=== PATIENT | female | born 1950 | race Caucasian/White ===

== ENCOUNTER → 2017-10-14 | Outpatient (REF) | payer MEDICARE ==
[2017-10-14 15:06] LABS: ALBUMIN 3.6 GM/DL (3.2-5.2); ALBUMIN/GLOBULIN RATIO 0.84 (1.00-1.93); ALKALINE PHOSPHATASE 69 U/L (45-117); ALT/SGPT 30 U/L (12-78); ANION GAP 7 MEQ/L (8-16); AST/SGOT 24 U/L (7-37); BILIRUBIN,TOTAL 0.5 MG/DL (0.2-1.0); BLOOD UREA NITROGEN 17 MG/DL (7-18); CALCIUM LEVEL 8.9 MG/DL (8.8-10.2); CARBON DIOXIDE LEVEL 27 MEQ/L (21-32); CHLORIDE LEVEL 105 MEQ/L (98-107); CHOLESTEROL LEVEL 202 MG/DL (<200); CHOLESTEROL RISK RATIO 5.179 (<5); CREATININE FOR GFR 1.27 MG/DL (0.55-1.30); GLOMERULAR FILTRATION RATE 44.8 (>45); GLUCOSE, FASTING 154 MG/DL (70-100); HDL CHOLESTEROL 39 MG/DL (>40); LDL CHOLESTEROL 102.6 MG/DL (<100); NON-HDL-C 163 MG/DL; SODIUM LEVEL 139 MEQ/L (136-145); THYROID STIMULATING HORMONE 0.133 uIU/ML (0.358-3.740); TOTAL PROTEIN 7.9 GM/DL (6.4-8.2); TRIGLYCERIDES LEVEL 302 MG/DL (<150)
[2017-10-14 17:18] LABS: ESTIMATED AVERAGE GLUCOSE 177 MG/DL (60-110); HEMOGLOBIN A1c 7.8 %
== END ==
LOC: M SFHCPLAZ 11:27
DX: E11.9 Type 2 diabetes mellitus without complications (principal); E78.2 Mixed hyperlipidemia; E89.0 Postprocedural hypothyroidism
CPT/HCPCS: 84443

== ENCOUNTER → 2017-11-22 | Outpatient (CLI) | payer MEDICARE | LOC: M LRY 12:17 | DX: M16.11 Unilateral primary osteoarthritis, right hip (principal); M51.37 Other intervertebral disc degeneration, lumbosacral region; M25.78 Osteophyte, vertebrae; M25.551 Pain in right hip; M79.604 Pain in right leg | CPT/HCPCS: 72110; G0463 ==

== ENCOUNTER 2017-12-20 12:17 | Emergency (ER) | payer MEDICARE ==
[2017-12-20 11:50] LABS: KETONE, URINE AUTO RFX NEGATIVE (NEGATIVE); LEUKOCYTE ESTERASE UR AUTO RFX NEGATIVE (NEGATIVE); MUCUS, URINE RFX SMALL (NEGATIVE); NITRITE, URINE AUTO RFX NEGATIVE (NEGATIVE); RBC, URINE AUTO RFX 42 /HPF (0-3); SPECIFIC GRAVITY UR AUTO RFX 1.014 (1.002-1.035); SQUAM EPITHELIAL CELL UR AURFX 0 /HPF (0-6); WBC, URINE AUTO RFX 0 /HPF (0-3)
[2017-12-20 12:22] LABS: BASO % 0.1 % (0.0-1.0); EOS % 0.1 % (0.0-3.0); HEMATOCRIT 42.3 % (36.0-47.0); HEMOGLOBIN 14.3 g/dl (12.0-15.5); IMMATURE GRANULOCYTE % 0.5 % (0-3.0); LYMPH # 0.8 10^3/uL (1.5-4.5); LYMPH % 9.6 % (24.0-44.0); MEAN CORPUSCULAR HEMOGLOBIN 28.4 pg (27.0-33.0); MEAN CORPUSCULAR HGB CONC 33.8 g/dl (32.0-36.5); MEAN CORPUSCULAR VOLUME 83.9 fl (80.0-96.0); MONO # 0.2 10^3/uL (0.0-0.8); MONO % 2.1 % (0.0-5.0); NEUTROPHILS % 87.6 % (36.0-66.0); PLATELET COUNT, AUTOMATED 170 10^3/uL (150-450); RED BLOOD COUNT 5.04 10^6/uL (4.00-5.40); RED CELL DISTRIBUTION WIDTH 13.2 % (11.5-14.5)
[2017-12-20 12:52] LABS: ANION GAP 8 MEQ/L (8-16); BLOOD UREA NITROGEN 16 MG/DL (7-18); CARBON DIOXIDE LEVEL 28 MEQ/L (21-32); CHLORIDE LEVEL 104 MEQ/L (98-107); CREATININE FOR GFR 1.31 MG/DL (0.55-1.30); GLOMERULAR FILTRATION RATE 43.2 (>45); GLUCOSE, FASTING 225 MG/DL (70-100); POTASSIUM SERUM 4.2 MEQ/L (3.5-5.1); SODIUM LEVEL 140 MEQ/L (136-145)
[2017-12-20 12:53] LABS: ALBUMIN 3.3 GM/DL (3.2-5.2); ALBUMIN/GLOBULIN RATIO 0.67 (1.00-1.93); ALKALINE PHOSPHATASE 72 U/L (45-117); ALT/SGPT 31 U/L (12-78); AST/SGOT 19 U/L (7-37); BILIRUBIN,DIRECT 0.2 MG/DL (0.0-0.2); BILIRUBIN,TOTAL 0.7 MG/DL (0.2-1.0); CALCIUM LEVEL 8.7 MG/DL (8.8-10.2); LIPASE 123 U/L (73-393); TOTAL PROTEIN 8.2 GM/DL (6.4-8.2)
== END 2017-12-20 13:55 | disposition home or self-care (01) ==
LOC: M ED 12:17
DX: N20.1 Calculus of ureter (principal); N13.30 Unspecified hydronephrosis; E11.9 Type 2 diabetes mellitus without complications; I10 Essential (primary) hypertension; E78.00 Pure hypercholesterolemia, unspecified; E03.9 Hypothyroidism, unspecified; K80.20 Calculus of gallbladder without cholecystitis without obstruction; K76.0 Fatty (change of) liver, not elsewhere classified; K44.9 Diaphragmatic hernia without obstruction or gangrene; D25.9 Leiomyoma of uterus, unspecified; Z79.899 Other long term (current) drug therapy
CPT/HCPCS: 74176

== ENCOUNTER 2017-12-21 15:52 | Observation (INO) | payer MEDICARE ==
[2017-12-21] MEDS: METOCLOPRAMIDE INJ 10MG/2ML VIAL (J2765) IV (15:59)
[2017-12-21] MEDS: KETOROLAC 30 MG/ML VIAL (J1885) IV (16:00)
[2017-12-21] MEDS: NS 1,000 ML IV ×3 (16:01→23:41)
[2017-12-21 16:13] LABS: BASO % 0.2 % (0.0-1.0); EOS % 0.2 % (0.0-3.0); HEMATOCRIT 42.5 % (36.0-47.0); HEMOGLOBIN 14.6 g/dl (12.0-15.5); IMMATURE GRANULOCYTE % 0.3 % (0-3.0); LYMPH # 1.7 10^3/uL (1.5-4.5); MEAN CORPUSCULAR HEMOGLOBIN 28.8 pg (27.0-33.0); MEAN CORPUSCULAR HGB CONC 34.4 g/dl (32.0-36.5); MEAN CORPUSCULAR VOLUME 83.8 fl (80.0-96.0); MONO # 0.7 10^3/uL (0.0-0.8); NEUTROPHILS # 7.9 10^3/uL (1.8-7.7); NEUTROPHILS % 76.3 % (36.0-66.0); PLATELET COUNT, AUTOMATED 196 10^3/uL (150-450); RED BLOOD COUNT 5.07 10^6/uL (4.00-5.40); RED CELL DISTRIBUTION WIDTH 13.3 % (11.5-14.5); WHITE BLOOD COUNT 10.3 10^3/uL (4.0-10.0)
[2017-12-21 16:36] LABS: ALBUMIN 3.5 GM/DL (3.2-5.2); ALBUMIN/GLOBULIN RATIO 0.83 (1.00-1.93); ALKALINE PHOSPHATASE 75 U/L (45-117); ALT/SGPT 29 U/L (12-78); ANION GAP 10 MEQ/L (8-16); AST/SGOT 16 U/L (7-37); BILIRUBIN,DIRECT 0.3 MG/DL (0.0-0.2); BILIRUBIN,TOTAL 1.1 MG/DL (0.2-1.0); BLOOD UREA NITROGEN 21 MG/DL (7-18); CALCIUM LEVEL 8.5 MG/DL (8.8-10.2); CARBON DIOXIDE LEVEL 27 MEQ/L (21-32); CHLORIDE LEVEL 102 MEQ/L (98-107); CREATININE FOR GFR 1.84 MG/DL (0.55-1.30); GLOMERULAR FILTRATION RATE 29.2 (>45); GLUCOSE, FASTING 200 MG/DL (70-100); LIPASE 135 U/L (73-393); SODIUM LEVEL 139 MEQ/L (136-145); TOTAL PROTEIN 7.7 GM/DL (6.4-8.2)
[2017-12-21 19:47] LABS: CALCIUM OXALATE CRYSTALS RFX SMALL; KETONE, URINE AUTO RFX TRACE mg/dL (NEGATIVE); LEUKOCYTE ESTERASE UR AUTO RFX NEGATIVE (NEGATIVE); MUCUS, URINE RFX LARGE (NEGATIVE); NITRITE, URINE AUTO RFX NEGATIVE (NEGATIVE); RBC, URINE AUTO RFX 90 /HPF (0-3); SPECIFIC GRAVITY UR AUTO RFX 1.024 (1.002-1.035); SQUAM EPITHELIAL CELL UR AURFX 1 /HPF (0-6); WBC, URINE AUTO RFX 9 /HPF (0-3)
[2017-12-21] MEDS ORDERED: PERCOCET 5MG/325MG TAB PO (21:15)
[2017-12-21] MEDS ORDERED: MORPHINE 4 MG/ML 1ML VIAL/SYRINGE (J2270) IV (21:15)
[2017-12-21] MEDS ORDERED: GLUCAGON FOR INJ 1 MG VIAL (J1610) SC (21:15)
[2017-12-21] MEDS ORDERED: ONDANSETRON 4MG/2ML VIAL (J2405) IV (21:15)
[2017-12-21] MEDS ORDERED: GLUCOSE 4 GM CHEW TABLET PO (21:15)
[2017-12-21] MEDS ORDERED: DEXTROSE 50% 50 ML SYRINGE IV (21:15)
[2017-12-21] MEDS ORDERED: ACETAMINOPHEN TAB 650MG DOSE (2X325MG) PO (21:15)
[2017-12-21 21:36] LABS: ESTIMATED AVERAGE GLUCOSE 154 MG/DL (60-110)
[2017-12-21] MEDS: cefTRIAXone SOD 1 GM in D5W MINI-BAG PLUS 50 ML IV (23:41)
[2017-12-21] MEDS: TAMSULOSIN 0.4 MG CAP PO (23:41)
[2017-12-21 23:50] LABS: BEDSIDE GLUCOSE 134 MG/DL (80-115)
[2017-12-22 06:08] LABS: BEDSIDE GLUCOSE 120 MG/DL (80-115)
[2017-12-22] MEDS: NS 1,000 ML IV ×3 (06:16→23:49)
[2017-12-22] MEDS: LEVOTHYROXINE 75MCG TABLET (0.075MG) PO (06:16)
[2017-12-22] MEDS: PERCOCET 5MG/325MG TAB PO (06:17)
[2017-12-22] MEDS: HumaLOG INSULIN (NovoLOG) PER UNIT SC ×5 (06:18→21:19)
[2017-12-22 07:26] LABS: BASO % 0.2 % (0.0-1.0); EOS # 0.1 10^3/uL (0.0-0.50); EOS % 1.7 % (0.0-3.0); HEMATOCRIT 33.5 % (36.0-47.0); IMMATURE GRANULOCYTE % 0.3 % (0-3.0); LYMPH # 1.4 10^3/uL (1.5-4.5); LYMPH % 21.4 % (24.0-44.0); MEAN CORPUSCULAR HEMOGLOBIN 28.9 pg (27.0-33.0); MEAN CORPUSCULAR HGB CONC 34.6 g/dl (32.0-36.5); MEAN CORPUSCULAR VOLUME 83.3 fl (80.0-96.0); MONO # 0.5 10^3/uL (0.0-0.8); MONO % 8.1 % (0.0-5.0); NEUTROPHILS # 4.3 10^3/uL (1.8-7.7); NEUTROPHILS % 68.3 % (36.0-66.0); PLATELET COUNT, AUTOMATED 130 10^3/uL (150-450); RED BLOOD COUNT 4.02 10^6/uL (4.00-5.40); RED CELL DISTRIBUTION WIDTH 13.4 % (11.5-14.5); WHITE BLOOD COUNT 6.3 10^3/uL (4.0-10.0)
[2017-12-22 07:36] LABS: HEMOGLOBIN 11.6 g/dl (12.0-15.5)
[2017-12-22 07:49] LABS: ANION GAP 8 MEQ/L (8-16); BLOOD UREA NITROGEN 23 MG/DL (7-18); CALCIUM LEVEL 7.5 MG/DL (8.8-10.2); CARBON DIOXIDE LEVEL 25 MEQ/L (21-32); CHLORIDE LEVEL 110 MEQ/L (98-107); CREATININE FOR GFR 1.98 MG/DL (0.55-1.30); GLOMERULAR FILTRATION RATE 26.8 (>45); GLUCOSE, FASTING 104 MG/DL (70-100); POTASSIUM SERUM 3.5 MEQ/L (3.5-5.1); SODIUM LEVEL 143 MEQ/L (136-145)
[2017-12-22 11:37] LABS: BEDSIDE GLUCOSE 97 MG/DL (80-115)
[2017-12-22] MEDS ORDERED: fentaNYL 100 MCG/2 ML INJECTION (J3010) As Ordered (16:05)
[2017-12-22] MEDS ORDERED: MIDAZOLAM INJ 2 MG/2 ML VIAL (J2250) As Ordered (16:05)
[2017-12-22] MEDS: CONRAY-60 60% 50ML VIAL (Q9961) As Ordered (16:28)
[2017-12-22 17:50] LABS: BEDSIDE GLUCOSE 99 MG/DL (80-115)
[2017-12-22] MEDS ORDERED: METOCLOPRAMIDE INJ 10MG/2ML VIAL (J2765) IV (18:45)
[2017-12-22] MEDS: LR 1,000 ML IV (18:45)
[2017-12-22] MEDS ORDERED: fentaNYL 100 MCG/2 ML INJECTION (J3010) IV (18:45)
[2017-12-22] MEDS ORDERED: ONDANSETRON 4MG/2ML VIAL (J2405) IV (18:45)
[2017-12-22] MEDS ORDERED: PERCOCET 5MG/325MG TAB PO (18:45)
[2017-12-22 21:07] LABS: BEDSIDE GLUCOSE 147 MG/DL (80-115)
[2017-12-22] MEDS: TAMSULOSIN 0.4 MG CAP PO (21:41)
[2017-12-22] MEDS: PRAVASTATIN 20 MG TAB PO (21:41)
[2017-12-22] MEDS: LISINOPRIL 20 MG TAB PO (21:44)
[2017-12-23] MEDS: cefTRIAXone SOD 1 GM in D5W MINI-BAG PLUS 50 ML IV (00:26)
[2017-12-23] MEDS: NS 1,000 ML IV ×2 (01:53→06:29)
[2017-12-23] MEDS: LEVOTHYROXINE 75MCG TABLET (0.075MG) PO (06:10)
[2017-12-23 06:49] LABS: BASO % 0.4 % (0.0-1.0); EOS # 0.2 10^3/uL (0.0-0.50); EOS % 3.6 % (0.0-3.0); HEMOGLOBIN 11.2 g/dl (12.0-15.5); IMMATURE GRANULOCYTE % 0.2 % (0-3.0); LYMPH # 1.5 10^3/uL (1.5-4.5); LYMPH % 30.7 % (24.0-44.0); MEAN CORPUSCULAR HEMOGLOBIN 28.9 pg (27.0-33.0); MEAN CORPUSCULAR HGB CONC 33.9 g/dl (32.0-36.5); MEAN CORPUSCULAR VOLUME 85.3 fl (80.0-96.0); MONO # 0.3 10^3/uL (0.0-0.8); MONO % 6.8 % (0.0-5.0); NEUTROPHILS # 2.8 10^3/uL (1.8-7.7); NEUTROPHILS % 58.3 % (36.0-66.0); PLATELET COUNT, AUTOMATED 133 10^3/uL (150-450); RED BLOOD COUNT 3.87 10^6/uL (4.00-5.40); RED CELL DISTRIBUTION WIDTH 13.4 % (11.5-14.5); WHITE BLOOD COUNT 4.7 10^3/uL (4.0-10.0)
[2017-12-23 07:16] LABS: ANION GAP 9 MEQ/L (8-16); BLOOD UREA NITROGEN 18 MG/DL (7-18); CALCIUM LEVEL 7.6 MG/DL (8.8-10.2); CARBON DIOXIDE LEVEL 24 MEQ/L (21-32); CHLORIDE LEVEL 111 MEQ/L (98-107); CREATININE FOR GFR 1.19 MG/DL (0.55-1.30); GLOMERULAR FILTRATION RATE 48.3 (>45); GLUCOSE, FASTING 97 MG/DL (70-100); POTASSIUM SERUM 3.6 MEQ/L (3.5-5.1); SODIUM LEVEL 144 MEQ/L (136-145)
[2017-12-23] MEDS: HumaLOG INSULIN (NovoLOG) PER UNIT SC (07:30)
== END 2017-12-23 11:10 | disposition home or self-care (01) ==
LOC: M ED 15:52 → M ED INP 21:09 → M PED 23:25
DX: N13.2 Hydronephrosis with renal and ureteral calculous obstruction (principal); N17.9 Acute kidney failure, unspecified; D72.829 Elevated white blood cell count, unspecified; R50.9 Fever, unspecified; E11.65 Type 2 diabetes mellitus with hyperglycemia; I12.9 Hypertensive chronic kidney disease with stage 1 through stage 4 chronic kidney disease, or unspecified chronic kidney disease; N18.3 Chronic kidney disease, stage 3 (moderate); E11.29 Type 2 diabetes mellitus with other diabetic kidney complication; E03.9 Hypothyroidism, unspecified; E78.5 Hyperlipidemia, unspecified; K44.9 Diaphragmatic hernia without obstruction or gangrene; K76.0 Fatty (change of) liver, not elsewhere classified; K80.20 Calculus of gallbladder without cholecystitis without obstruction; Z79.899 Other long term (current) drug therapy; Z79.84 Long term (current) use of oral hypoglycemic drugs
CPT/HCPCS: 52332

== ENCOUNTER → 2017-12-29 | Outpatient (CLI) | payer MEDICARE | LOC: M SMT 09:36 | DX: K80.20 Calculus of gallbladder without cholecystitis without obstruction (principal); N20.0 Calculus of kidney; Z96.0 Presence of urogenital implants | CPT/HCPCS: 74018; G0463 ==

== ENCOUNTER 2018-01-04 16:09 | Emergency (ER) | payer MEDICARE ==
[2018-01-04] MEDS: LIDOCAINE 1% MDV 20ML VIAL IM (17:26)
== END 2018-01-04 18:26 | disposition home or self-care (01) ==
LOC: M ED 16:09
DX: S62.634A Displaced fracture of distal phalanx of right ring finger, initial encounter for closed fracture (principal); W19.XXXA Unspecified fall, initial encounter; Y92.098 Other place in other non-institutional residence as the place of occurrence of the external cause; Z79.899 Other long term (current) drug therapy; Z79.84 Long term (current) use of oral hypoglycemic drugs
CPT/HCPCS: 73140

== ENCOUNTER 2018-01-12 07:40 | Day surgery (SDC) | payer MEDICARE ==
[~2018-01-12 07:40] MED LIST: LIDOCAINE 2% INJ 100 MG/5 ML SDV (FOR ANES.) As Ordered; MIDAZOLAM INJ 2 MG/2 ML VIAL (J2250) As Ordered; PROPOFOL 200 MG/20 ML VIAL As Ordered; fentaNYL 100 MCG/2 ML INJECTION (J3010) As Ordered
[2018-01-12] MEDS ORDERED: LR 1,000 ML IV ×2 (08:00→10:00)
[2018-01-12 08:27] LABS: BEDSIDE GLUCOSE 165 MG/DL (80-115)
[2018-01-12] MEDS ORDERED: VANCOMYCIN 1000 MG/20 ML VIAL (J3370) As Ordered (08:28)
[2018-01-12] MEDS: VANCOMYCIN HCL 1,000 MG, VIAL MATE ADAPTER 1 EACH in D5W 250 ML IV (08:35)
[2018-01-12] MEDS: GENTAMICIN 80 MG in APPROPRIATE DILUENT 1 EA IV (09:02)
[2018-01-12] MEDS: CONRAY-60 60% 50ML VIAL (Q9961) As Ordered (09:21)
[2018-01-12] MEDS ORDERED: PERCOCET 5MG/325MG TAB As Ordered (09:51)
[2018-01-12] MEDS: PERCOCET 5MG/325MG TAB PO (09:54)
[2018-01-12] MEDS ORDERED: PERCOCET 5MG/325MG TAB PO (10:00)
[2018-01-12] MEDS ORDERED: fentaNYL 100 MCG/2 ML INJECTION (J3010) IV (10:00)
[2018-01-12] MEDS ORDERED: ONDANSETRON 4MG/2ML VIAL (J2405) IV (10:00)
== END 2018-01-12 10:45 | disposition home or self-care (01) ==
LOC: M SDC 07:40
DX: N20.1 Calculus of ureter (principal); N20.0 Calculus of kidney; I10 Essential (primary) hypertension; E03.9 Hypothyroidism, unspecified; E78.5 Hyperlipidemia, unspecified; Z79.899 Other long term (current) drug therapy
CPT/HCPCS: 52352

== ENCOUNTER → 2018-11-23 | Outpatient (REF) | payer MEDICARE ==
[~2018-11-23] MED LIST changes: +ACET-716 PO; +ACET1TAB16 PO; +AMLO10TAB OR; +DITR5TAB PO; +FLOM0.4C39 PO; +GLIM1TAB PO; +GLIM2TAB PO; +IRON28TA OR; +JANU100T PO; +Januvia PO; +LEVO88TA3 PO; -LIDOCAINE 2% INJ 100 MG/5 ML SDV (FOR ANES.) As Ordered; +LISI-538 PO; +METF500T13 PO; +METF500T4 PO; +METH10TA PO; -MIDAZOLAM INJ 2 MG/2 ML VIAL (J2250) As Ordered; +MULTIVIT PO; +Methimazole PO; +NITR100C39 PO; +ONDA4TAB6 PO; +POTA99TA OR; +PRAV40TA2 PO; -PROPOFOL 200 MG/20 ML VIAL As Ordered; +Pravastatin PO; +SYNT75TA PO; +VITA100066 PO; +Vitamin D PO; +ZEST20TA4 OR; +ZOFR4TAB14 PO; +[UNRECOGNIZED DRUG - OTHER] PO; -fentaNYL 100 MCG/2 ML INJECTION (J3010) As Ordered
[2018-11-23 15:54] LABS: HEMATOCRIT 43.3 % (36.0-47.0); HEMOGLOBIN 14.5 g/dl (12.0-15.5); MEAN CORPUSCULAR HEMOGLOBIN 29.1 pg (27.0-33.0); MEAN CORPUSCULAR HGB CONC 33.5 g/dl (32.0-36.5); MEAN CORPUSCULAR VOLUME 86.9 fl (80.0-96.0); PLATELET COUNT, AUTOMATED 220 10^3/uL (150-450); RED BLOOD COUNT 4.98 10^6/uL (4.00-5.40); WHITE BLOOD COUNT 7.5 10^3/uL (4.0-10.0)
[2018-11-23 16:30] LABS: HEMOGLOBIN A1c 7.3 %
== END ==
LOC: M SFHCPLAZ 14:14
PROVIDERS: ATTEND Nurse Practitioner Adult Health
DX: E11.9 Type 2 diabetes mellitus without complications (principal)

== ENCOUNTER → 2019-09-06 | Outpatient (CLI) | payer MEDICARE ==
[~2019-09-06] MED LIST changes: -GLIM1TAB PO; +GLIM1TAB4 PO; -GLIM2TAB PO; +GLIM2TAB4 PO; +METF-791 PO; -METF500T4 PO
--- NOTE | 2019-09-06 17:17 | REP ---
BILATERAL SCREENING MAMMOGRAM WITH 3D TOMOSYNTHESIS, BASELINE STUDY: FAMILY HISTORY: Daughter with breast cancer at age 44. [facility] lifetime risk of breast cancer 8.3%. Bilateral mammography performed in the MLO and CC projections with 3D tomosynthesis. Moderate scattered fibroglandular tissue is seen bilaterally. In the upper outer quadrant of the left breast there appears to be an area of architectural distortion. This is somewhat posteriorly located and encompasses an area of approximately 3 to 4 cm in diameter. In the upper outer quadrant of the right breast posteriorly, two areas of tiny calcifications are seen, by about 2 cm. Recommend magnification views to further evaluation. There are other scattered benign appearing calcifications bilaterally. IMPRESSION: ACR 0 incomplete. There is an area of suspected architectural distortion in the upper outer quadrant of the left breast. Recommend spot compression views to further evaluate. Ultrasound may also be necessary. Two adjacent areas of microcalcifications in the upper outer quadrant of the right breast. Recommend magnification views to further evaluate. BIRADS 0: BI-RADS/ACR category 0 mammogram, Incomplete: Need additional imaging evaluation and/or prior mammograms for comparison. This mammogram was interpreted with the aid of an FDA-approved computer-aided detection system. The patient states she/he has not had a clinical breast exam in over a year. The patient letter being requested is M0.
== END ==
LOC: M WHC 15:24
PROVIDERS: ATTEND Nurse Practitioner Adult Health
DX: Z12.31 Encounter for screening mammogram for malignant neoplasm of breast (principal)

== ENCOUNTER → 2019-09-16 | Outpatient (CLI) | payer MEDICARE ==
--- NOTE | 2019-09-16 17:16 | REP ---
BILATERAL DIAGNOSTIC MAMMOGRAM AND LEFT BREAST ULTRASOUND: Bilateral diagnostic imaging is performed and correlated with the recent mammogram of 09/06/2019. Magnification views of the right breast show five separate clusters of pleomorphic microcalcifications posteriorly in the upper outer quadrant of the right breast. These are suspicious and biopsy is recommended. Spot compression views of the left breast are performed. These show focal architectural distortion and spiculation in the upper outer quadrant of the left breast about 8 to 10 cm from the nipple. The area involved is approximately 2 to 3 cm in diameter. Real-time sonographic evaluation of the upper outer quadrant of the left breast does not demonstrate a discrete cystic or solid mass. IMPRESSION: BI-RADS category 4 suspicious bilateral diagnostic mammogram. In the upper outer quadrant of the right breast posteriorly there are five clusters of pleomorphic microcalcifications which may represent multifocal carcinoma. Recommend stereotactic biopsy. In the upper outer quadrant of the left breast there is focal architectural distortion without a sonographic correlate. Recommend stereotactic biopsy. BIRADS 4: BI-RADS/ACR category 4 mammogram. Suspicious Abnormality - biopsy should be considered. This mammogram was interpreted with the aid of an FDA-approved computer-aided detection system. The patient letter being requested is M4.
== END ==
LOC: M WHC 13:42
PROVIDERS: ATTEND Nurse Practitioner Adult Health
DX: Z12.31 Encounter for screening mammogram for malignant neoplasm of breast (principal)

== ENCOUNTER → 2019-09-23 | Outpatient (CLI) | payer MEDICARE | LOC: M PLALAB 12:57 | PROVIDERS: ATTEND Surgery | DX: Z13.79 Encounter for other screening for genetic and chromosomal anomalies (principal) ==

== ENCOUNTER → 2019-09-27 | Outpatient (CLI) | payer MEDICARE ==
--- NOTE | 2019-09-27 16:34 | REP ---
Focused right breast sonography: History: Palpable mass 11 o'clock position right breast, 11 cm from the nipple. History of microcalcifications. Findings: Sonography in the right breast at the 11 o'clock position shows heterogeneous fibroglandular background echotexture. No suspicious sonographic finding. Impression: No suspicious sonographic abnormality in the directed 11 o'clock position right breast.
== END ==
LOC: M WHC 14:00
PROVIDERS: ATTEND Surgery
DX: N63.12 Unspecified lump in the right breast, upper inner quadrant (principal)

== ENCOUNTER → 2019-09-28 | Outpatient (CLI) | payer MEDICARE ==
[~2019-09-28] MED LIST changes: +LIDOCAINE 1% MDV 20ML VIAL As Ordered ONE; +SODIUM BICARBONATE 8.4% INJ 50MEQ 50 ML VIAL As Ordered ONE
[2019-09-28 11:50] VITALS: BP 183/90
--- NOTE | 2019-09-28 16:01 | REP ---
POSTBIOPSY MAMMOGRAM LEFT BREAST: ML and CC views of the left breast are performed status post sterotactic biopsy of an area of architectural distortion in the upper outer quadrant of the left breast. The prebiopsy sterotactic paired images show good alignment of the needle with the area of architectural distortion using a lateral to medial approach. The postbiopsy images with marking clip deployed show that the marking clip appears to be in the region of the area of architectural distortion. The postbiopsy ML and CC views of the left breast show that the marking clip is more medial and superior to the area of architectural distortion, approximately 6 cm away from the abnormality. This could be due to an accordion effect with displacement of the marking clip away from the biopsied area, but I am uncertain if the area was appropriately biopsied. Recommend close correlation with the biopsy results. Electronically Signed by Karson Menjivar MD 09/28/2019 04:26 P
--- NOTE | 2019-09-29 09:42 | REP ---
Stereotactic breast biopsy. This procedure is performed by SILVINO Leos, under the personal supervision of Dr. Menjivar. The risks and benefits of the procedure were explained to the patient and informed consent was obtained both verbally and written. Directly prior to the start of the procedure, a formal timeout was done in the procedure room. The lateral medial approach was utilized. The architectural irregularity of the left breast was localized using stereotactic mammographic guidance. 10 ml of 1% lidocaine 10 mg/ml was used as a local anesthetic. And 8-gauge, suction assisted Mammotome needle was inserted and 6 core biopsy samples were obtained. A marker clip was placed at the biopsy site. The needle was removed and homeostasis was achieved. The patient tolerated the procedure well and there were no immediate complications. After the appropriate amount of monitored convalescence, the patient was discharged from the department. Impression: Technically successful left breast stereotactic biopsy Reviewed by SILVINO Higuera 09/28/2019 04:55 P Electronically Signed by Karson Menjivar MD 09/29/2019 09:33 A
== END ==
LOC: M IRPRO 11:15
PROVIDERS: ATTEND Surgery
DX: N60.12 Diffuse cystic mastopathy of left breast (principal); R92.8 Other abnormal and inconclusive findings on diagnostic imaging of breast

== ENCOUNTER → 2019-10-05 | Outpatient (CLI) | payer MEDICARE ==
[~2019-10-05] MED LIST changes: -LIDOCAINE 1% MDV 20ML VIAL As Ordered ONE; -SODIUM BICARBONATE 8.4% INJ 50MEQ 50 ML VIAL As Ordered ONE
[2019-10-05 14:29] VITALS: BP 156/94
--- NOTE | 2019-10-05 15:24 | REP ---
POSTBIOPSY MAMMOGRAM, RIGHT BREAST: MLO and CC views of the right breast performed status post stereotactic biopsy of clustered microcalcifications in the upper outer quadrant of the right breast. Several clusters of microcalcifications were seen in this region on recent mammograms. There are two metallic clips placed at the site of the biopsies obtained. These are in the posterior third of the breast. One clip is more superolaterally located and the other clip is more inferomedially located. There are residual intervening microcalcifications present.
--- NOTE | 2019-10-05 15:27 | REP ---
SPECIMEN RADIOGRAPH: Three specimen radiographs are performed. Sterotactic biopsy was performed by Dr. Herrera of the right breast upper outer quadrant. Multiple calcifications are seen in four of the obtained specimens.
--- NOTE | 2019-10-06 13:32 | ROOPDOC ---
[facility] Report Of Operation Report of Operation DATE OF PROCEDURE: 10/05/19 PREPROCEDURE DIAGNOSES: Right breast suspicious calcifications POSTPROCEDURE DIAGNOSES: Right breast suspicious calcifications PROCEDURE: Right breast stereotactic biopsy of 2 different sites with clips placement SURGEON: Nicho Ramesh ANIME ARTIST: ANESTHESIA: Local anesthetic was used ESTIMATED BLOOD LOSS: Approximately 1 mL. COMPLICATIONS: None REMARKS: Both clips were seen on mammogram after the biopsy in appropriate locations. Some of the calcifications were removed is seen in specimens DESCRIPTION OF PROCEDURE: Lidocaine 1% LOT [id number] Expiration 07/2020 Sodium Bicarbonate 8.4% LOT [id number] Expiration 08/2020 MEDIAL BX SITE (#1) Hydromark clip LOT [id number] Expiration 03/2021 T1 titanium shaped 1 (closed Spring) Bx device: Stereotactic Mammotome Revolve Dual Vacuum- assisted Biopsy System 10 G [id number] Expiration 08/2021 LATERAL BIOPSY SITE (#2) Hydromark clip LOT [id number] Expiration 08/2021 T3 titanium shaped 3 Bx device: Stereotactic Mammotome Revolve Dual Vacuum- assisted Biopsy System 10 G LOT [id number] Expiration 07/2022 Informed consent was obtained in the preop area. The most common risk and po ssible complications including bleeding, hematoma, bruising, infection, injury to surrounding structures were explained to the patient and she expressed understanding. Patient was taken to the procedure room and placed prone on the [facility] Breast Biopsy table with the right breast hanging through the table aperture. Right breast was placed into Cranio-Caudal compression and [employer] rula images were taken. Suspicious calcifications were identified on the rula images. On initial diagnostic mammogram 5 different clusters of suspicious calcs were noted. Two clusters, most medial and most posterior/ lateral were chosen for r epresentative sampling. Those two clusters were set as two targets, medial and lateral. CC approach form above was chosen. At this time, since we were able to confirm visibility of the suspicious calcifications and patient tolerated prone positioning allowing to proceed with the biopsy, appropriate time out was done stating patients name, date of , and the procedure to be performed. We started the procedure targeting the medial cluster of calcifications. The right breast in CC compression was prepped in the usual fashion. Plain Lidocaine 1% and 8.4% sodium bicarbonate 10:1 mix was used to numb the skin, the biopsy site and tissues along the anticipated biopsy tract. Small skin incision was made with blade number 11. Mammotome 10 G stereotactic breast biopsy device was inserted through the incision and advanced to the previously set coordinates marking the target lesion. Pre-fire imaging was taken to assure appropriate positioning. At this time, Mammotome 10 G breast biopsy device was fired and vacuum assisted biopsies were collected. The biopsy samples were investigated with Faxitron Imaging system and calcifications were observed. Biopsy samples were then placed in the formaldehyde, marked with patients name and right medial breast biopsy site, and sent to pathology for evaluation. Hydromark clip SHAPE 1 was placed into the Mammotome biopsy device channel and deployed. Post-deployment imaging was done to assure appropriate clip deployment. Clip was noted in the right breast. Next, our attention was turned toward the lateral cluster of calcifications. The right breast was re-positioned and placed again in CC compression to show lateral calcs. It was prepped in the usual fashion. Plain Lidocaine 1% and 8.4% sodium bicarbonate 10:1 mix was used to numb the skin, the biopsy site and tissues along the anticipated biopsy tract. Small skin incision was made with blade number 11. A New Mammotome 10 G stereotactic breast biopsy device was inserted through the incision and advanced to the previously set coordinates marking the target lesion. Pre-fire imaging was taken to assure appropriate positioning. At this time, Mammotome 10 G breast biopsy device was fired and vacuum assisted biopsies were collected. The biopsy samples were investigated with Faxitron Imaging system and calcifications were observed. Biopsy samples were then placed in the formaldehyde, marked with patients name and right lateral breast biopsy site, and sent to pathology for evaluation. Hydromark clip SHAPE 3 was placed into the Mammotome biopsy device channel and deployed. Post-deployment imaging was done to assure appropriate clip deployment. Clip was noted in the right breast. At this point, paddle CC compression of the right breast was released and manual pressure was held to decrease harmonic effect and to assure hemostasis. No bleeding was noted upon removal of the pressure. Patient was slowly repositioned and placed into sitting position, and then assisted off the table. Post-biopsy mammogram of the right breast was obtained and showed both clips in expected position. Postprocedural dressing was placed. Patient tolerated procedure well and was taken to the recovery unit in stable condition. Discharge instructions were discussed with the patient and she expressed understanding. NICHO RAMESH DO Oct 06, 2019 13:32
--- NOTE | 2019-10-07 13:55 | REP ---
STEREOTACTIC GUIDANCE FOR STEREOTACTIC BIOPSY RIGHT BREAST CLUSTERED MICROCALCIFICATIONS: Stereotactic guidance was provided for Dr. Herrera who performed stereotactic biopsy of clustered microcalcifications in the upper outer quadrant of the right breast. Several clusters were identified. Calcifications are seen in the biopsy window.
== END ==
LOC: M WHCPRO 12:03
PROVIDERS: ATTEND Surgery
DX: N60.11 Diffuse cystic mastopathy of right breast (principal); R92.1 Mammographic calcification found on diagnostic imaging of breast

== ENCOUNTER → 2019-10-12 | Outpatient (CLI) | payer MEDICARE ==
[~2019-10-12] MED LIST changes: +LIDOCAINE 1% MDV 20ML VIAL As Ordered ONE
[2019-10-12 12:22] VITALS: BP 153/87
--- NOTE | 2019-10-12 13:07 | REP ---
POSTBIOPSY MAMMOGRAM, LEFT BREAST: Postbiopsy mammogram left breast performed following stereotactic biopsy of an area of architectural distortion in the outer left breast. A marking clip is seen appropriately positioned at the site of the architectural distortion following the biopsy. There is some mild postbiopsy hematoma at that location. Electronically Signed by Karson Menjivar MD 10/12/2019 04:59 P
--- NOTE | 2019-10-12 17:01 | REP ---
STEREOTACTIC LEFT BREAST BIOPSY The procedure was performed under the direct supervision of Dr. Menjivar The patient has a history of a focal architectural distortion in the upper outer quadrant of the left breast seen on a previous mammogram dated 09/16/2019 The risks and benefits of the procedure were explained to the patient and informed consent was obtained. A lateral medial approach was utilized. The area of architectural distortion was localized using stereotactic mammographic guidance. 1% Xylocaine was used as a local anesthetic. An 10 gauge, suction assisted Mammotome needle was inserted and 9 core biopsy samples were obtained. Specimen radiograph demonstrates the presence of calcifications to be within the specimen. A marker clip was placed at the biopsy site. The patient tolerated the procedure well and there were no immediate complications. After the appropriate amount of monitored convalescence, the patient was discharged from the department. Electronically Signed by SILVINO Hooker 10/12/2019 03:23 P Electronically Signed by Karson Menjivar MD 10/12/2019 04:50 P
== END ==
LOC: M IRPRO 10:05
PROVIDERS: ATTEND Surgery
DX: N60.12 Diffuse cystic mastopathy of left breast (principal)

== ENCOUNTER → 2019-10-15 | Outpatient (REF) | payer MEDICARE ==
[~2019-10-15] MED LIST changes: -LIDOCAINE 1% MDV 20ML VIAL As Ordered ONE
[2019-10-15 14:34] LABS: CALCIUM LEVEL 9.3 MG/DL (8.8-10.2); CREATININE FOR GFR 1.28 MG/DL (0.55-1.30); GLOMERULAR FILTRATION RATE 44.1 (>45); POTASSIUM SERUM 3.8 MEQ/L (3.5-5.1)
== END ==
LOC: M PLALAB 12:47
PROVIDERS: ATTEND Surgery
DX: R92.1 Mammographic calcification found on diagnostic imaging of breast (principal); N63.10 Unspecified lump in the right breast, unspecified quadrant; R92.8 Other abnormal and inconclusive findings on diagnostic imaging of breast; Z80.3 Family history of malignant neoplasm of breast

== ENCOUNTER → 2019-10-26 | Outpatient (CLI) | payer MEDICARE | LOC: M RAD 10:26 | PROVIDERS: ATTEND Surgery | DX: N63.11 Unspecified lump in the right breast, upper outer quadrant (principal) ==

== ENCOUNTER → 2019-11-18 | Outpatient (REF) | payer MEDICARE ==
[~2019-11-18] MED LIST changes: +BIOT2500 PO; +CALC500T68 PO; +EUTH25TA PO; +GLIM4TAB5 PO; -METF-791 PO; +METF-838 PO; +MULTCAP PO
[2019-11-18 21:34] LABS: HEMOGLOBIN A1c 7.9 %
== END ==
LOC: M SFHCPLAZ 14:17
PROVIDERS: ATTEND Physician Assistant
DX: E11.65 Type 2 diabetes mellitus with hyperglycemia (principal)
CPT/HCPCS: 36415; 83036; G0463

== ENCOUNTER → 2019-11-30 | Outpatient (REF) | payer MEDICARE ==
[~2019-11-30] MED LIST changes: +ULTR50TA8 PO
[2019-11-30 14:09] LABS: BASO % 0.5 % (0.0-1.0); EOS # 0.2 10^3/uL (0.0-0.5); EOS % 2.2 % (0.0-3.0); HEMATOCRIT 42.8 % (36.0-47.0); HEMOGLOBIN 14.4 g/dl (12.0-15.5); LYMPH # 2.1 10^3/uL (1.5-5.0); LYMPH % 27.9 % (24.0-44.0); MEAN CORPUSCULAR HEMOGLOBIN 28.7 pg (27.0-33.0); MEAN CORPUSCULAR HGB CONC 33.6 g/dl (32.0-36.5); MEAN CORPUSCULAR VOLUME 85.4 fl (80.0-96.0); MONO # 0.4 10^3/uL (0.0-0.8); MONO % 5.3 % (0.0-5.0); NEUTROPHILS # 4.7 10^3/uL (1.5-8.5); NEUTROPHILS % 63.7 % (36.0-66.0); PLATELET COUNT, AUTOMATED 219 10^3/uL (150-450); RED BLOOD COUNT 5.01 10^6/uL (4.00-5.40); WHITE BLOOD COUNT 7.4 10^3/uL (4.0-10.0)
[2019-11-30 14:24] LABS: PROTHROMBIN TIME 12.9 SECONDS (11.8-14.0)
[2019-11-30 14:25] LABS: PARTIAL THROMBOPLASTIN TIME 25.1 SECONDS (25.0-38.4)
[2019-11-30 18:31] LABS: ALBUMIN 3.4 GM/DL (3.2-5.2); BILIRUBIN,TOTAL 0.6 MG/DL (0.2-1.0); CALCIUM LEVEL 9.2 MG/DL (8.8-10.2); CREATININE FOR GFR 1.27 MG/DL (0.55-1.30); FREE T4 1.24 NG/DL (0.76-1.46); GLOMERULAR FILTRATION RATE 44.5 (>45); POTASSIUM SERUM 4.3 MEQ/L (3.5-5.1); THYROID STIMULATING HORMONE 0.16 uIU/ML (0.358-3.740); TOTAL PROTEIN 7.9 GM/DL (6.4-8.2)
== END ==
LOC: M SFHCPLAZ 13:15
PROVIDERS: ATTEND Family Medicine
DX: I10 Essential (primary) hypertension (principal)
CPT/HCPCS: 80053; 82607; 84439; 84443; 85025; 85610; 85730; 93005; G0463

== ENCOUNTER → 2019-12-11 | Outpatient (CLI) | payer MEDICARE | LOC: M LABSMTC 09:23 | PROVIDERS: ATTEND Anesthesiology | DX: Z11.59 Encounter for screening for other viral diseases (principal) | CPT/HCPCS: C9803; U0003 ==

== ENCOUNTER 2019-12-14 10:18 | Day surgery (SDC) | payer MEDICARE ==
[~2019-12-14] VITALS: Ht 170.2 cm; Wt 97.9 kg
[~2019-12-14 10:18] MED LIST changes: +HEPARIN SOD (PORCINE) 5000UNITS/ML 1ML VIAL/SYRINGE SQ ONE; +LIDOCAINE 1% MDV 20ML VIAL SQ PRN; -LISI-538 PO; +LISI20TA33 PO; +LR 1,000 ML IV ONE; -ULTR50TA8 PO; +ceFAZolin SOD 2 GM in IV 1 EA IV ONE
[2019-12-14] MEDS ORDERED: propofoL 200 MG/20 ML VIAL As Ordered ONE (10:58)
[2019-12-14] MEDS ORDERED: ONDANSETRON 4MG/2ML VIAL As Ordered ONE (10:58)
[2019-12-14] MEDS ORDERED: ROCURONIUM BROMIDE 50 MG/5 ML VIAL As Ordered ONE (10:58)
[2019-12-14] MEDS ORDERED: LIDOCAINE 2% 100MG/5ML SDV (FOR ANES.) As Ordered ONE (10:58)
[2019-12-14] MEDS ORDERED: dexameTHASONE 4 MG/ML 1ML VIAL (J1100 PER 1MG) As Ordered ONE (10:58)
[2019-12-14] MEDS ORDERED: fentaNYL 100 MCG/2 ML INJECTION (J3010) As Ordered ONE (10:59)
[2019-12-14] MEDS ORDERED: MIDAZOLAM INJ 2MG/2ML VIAL (J2250 PER 1MG) As Ordered ONE (10:59)
[2019-12-14] MEDS ORDERED: HumaLOG INSULIN (NovoLOG) PER UNIT SC ONE (11:30)
[2019-12-14] MEDS ORDERED: BUPIVACAINE HCL 0.25% 10ML VIAL As Ordered ONE (11:58)
[2019-12-14] MEDS ORDERED: LIDOCAINE 1% MDV 20ML VIAL As Ordered ONE (11:58)
[2019-12-14] MEDS ORDERED: PHENYLephrine 500MCG 5ML (100MCG/ML) SYRINGE As Ordered ONE (12:45)
[2019-12-14] MEDS ORDERED: ACETAMINOPHEN 1000MG 100ML IV BTL (OFIRMEV) (J0131 PER 10MG) As Ordered ONE (13:16)
[2019-12-14] MEDS ORDERED: KETOROLAC 60MG 2ML VIAL As Ordered ONE (14:18)
[2019-12-14] MEDS ORDERED: HYDROmorphone HCL 2 MG/ML 1ML VIAL (J1170) As Ordered ONE (14:19)
[2019-12-14] MEDS ORDERED: ESMOLOL INJ 100MG/10ML VIAL As Ordered ONE (14:23)
[2019-12-14] MEDS ORDERED: ULTR50TA8 PO (14:43)
[2019-12-14] MEDS ORDERED: ONDANSETRON 4MG/2ML VIAL IV PRN (15:00)
[2019-12-14] MEDS ORDERED: METOCLOPRAMIDE INJ 10MG/2ML VIAL (J2765 PER 1) IV PRN (15:00)
[2019-12-14] MEDS ORDERED: fentaNYL 100 MCG/2 ML INJECTION (J3010) IV PRN (15:00)
[2019-12-14] MEDS ORDERED: LR 1,000 ML IV SCH (15:00)
[2019-12-14] MEDS ORDERED: PERCOCET 5MG/325MG TAB PO PRN (15:00)
[2019-12-14 17:43] VITALS: BP 143/69
--- NOTE | 2019-12-14 19:01 | ROOPDOC ---
[facility] Report Of Operation Report of Operation DATE OF PROCEDURE: 12/14/19 PREPROCEDURE DIAGNOSES: left breast intraductal papilloma POSTPROCEDURE DIAGNOSES: left breast intraductal papilloma PROCEDURE: left breast excisional biopsy with intraop wire placement SURGEON: Nicho Ramesh FINANCIAL AUDITOR: ANESTHESIA: general ESTIMATED BLOOD LOSS: Approximately 5 mL. COMPLICATIONS: none REMARKS: both wires and correct hydromark clip seen in specimen - confirmed by radiology / Dr Menjivar DESCRIPTION OF PROCEDURE: INDICATIONS: Ms. Quintana is a 69-year-old woman who was found to have a suspicious left breast architectural distortion on screening mammogram. Stereotactic guided biopsy of the left breast architectural distortion came back as intraductal papilloma. MRI of the breast was done and showed possible fat necrosis in the area of a rchitectural distortion although the MRI was poor quality due to processing issues. No second MRI was attempted to be done as patient has CKD and risk of injuring kidneys with repeat gadolinium injection was concerning. Excisional biopsy of the left breast architectural distortion marked with the Hydromark was offered to the patient. She was medically cleared for surgery by her primary care doctor. Risks and possible complications of surgical procedure including bleeding, infection and injury to surrounding structures were explained to the patient and she wished to proceed. Consent was signed. My initials were placed on the operat cristy site. Subcutaneous injection of 5000 units of heparin was done in Preop. DETAILS: Patient was taken to the operating room and placed on the operating room table. A sign in was called stating patients name, date of and the procedure to be done. Preoperative antibiotics were infused. Smooth induction of general anesthesia was done. Patients hands were extended on arm rests. Care was taken not to over extend the arms. Procedure was started with left breast intraop wire localization. Appropriate time out was done and patients name, date of , and the procedure to be done were confirmed. Left breast was cleaned by me. Intraoperative ultrasound was used again to confirm location of the Hydromark clip. Location of the clip was marked on the skin as well. 21 G [place] Breast Lesion Localization Needle was used to place 25 cm wire. The wire was placed next to the clip however upon removal of the needle the wire pulled back and was unable to be advanced. Another 21G [place] Breast Lesion localization Needle was used to place another wire past the location of the clip. The previous wire was kept in place. The images were captured confirming adequate placement of the localizing wire. Corporate Counsel assisted with the wire placement. Next, patients left breast and axilla were prepped and draped in the usual fashion. Care was taken not to displace the wires. Appropriate time out was done again prior second part of the procedure. Patients name, date of , and the procedure to be done were confirmed. Next, local anesthetic using 1% lidocaine and 0.25 % Marcaine 50/50 mix was injected at the site of planned periareolar incision. The incision was made with the scalpel. Subcutaneous skin flaps were raised and the guide wire was carefully pulled into the wound. Dissection was carries along the wire until the previously marked on the skin area of target lesion location was encountered. At this point, wider excision of the tissue surrounding the wire was done. The Hydromark clip was identified in the tissue with intraoperative hockey stick ultrasound probe. The end of the wire was identified with palpation. The excisional biopsy specimen was carefully removed from the breast keeping its proper orientation and moved to the back table where margins were marked with the surgical inking kit following the standard colors recommendations. Specimen was then placed on the grid and placed in [employer] Specimen Imaging System. The image revealed both wires and the correct Hydromark in the specimen. The specimen was labeled with patients name and left excisional biopsy and sent to pathology. At this time radiology department was called to aid with evaluation of excised specimen and to assure correct clip was removed since there were two clips in the left breast relatively close to each other. The correct clip was confirmed and no additional excision was recommended. Next, the wound was irrigated thoroughly and adequate hemostasis was assured. Additional local anesthetic was injected into surrounding tissues. space was approximated with 3-0 Vicryl. The dermis was closed with 3-0 Monocryl and skin was closed with 4-0 Monocryl. Surgical glue was placed over the incision. Patient emerged from the anesthesia without any problems. Fluffs were placed over the operative site and patients chest was wrapped snuggly in the SALVATORE wrap. Sponge and instrument counts were done and were correct. Patient tolerated procedure well and was taken to recovery unit in stable condition. NICHO RAMESH DO Dec 14, 2019 19:01
--- NOTE | 2019-12-15 11:54 | REP ---
SPECIMEN RADIOGRAPHY LEFT BREAST: Two views. HISTORY: Excision left breast biopsy. Comparison mammography October 12, 2019 and September 16, 2019. FINDINGS: Specimen radiography demonstrates two [place] needle wire localization device is in the specimen. Adjacent to the localizer wire is the recently placed coil type HydroMARK marker clip. Also noted is a spiculated area centrally in the specimen and two calcifications. IMPRESSION: Specimen radiography demonstrates the recently placed marker clip and a rounded spiculated area. Findings were discussed by telephone with the attending surgeon at the time of the imaging. Electronically Signed by Ky Shelley MD 12/15/2019 02:57 P
== END 2019-12-14 18:00 | disposition home or self-care (01) ==
LOC: M SDC 10:18
PROVIDERS: ATTEND Surgery
DX: D24.2 Benign neoplasm of left breast (principal); R01.1 Cardiac murmur, unspecified; I10 Essential (primary) hypertension; E78.5 Hyperlipidemia, unspecified; E11.9 Type 2 diabetes mellitus without complications; E03.9 Hypothyroidism, unspecified; Z79.899 Other long term (current) drug therapy
CPT/HCPCS: 19125; 36415; 76942; 86850; 86900; 86901; 88305; J0131; J0690; J1100; J1170; J1644; J1885; J2250; J2370; J2405; J3010

== ENCOUNTER → 2020-01-03 | Outpatient (CLI) | payer MEDICARE ==
[~2020-01-03] MED LIST changes: -HEPARIN SOD (PORCINE) 5000UNITS/ML 1ML VIAL/SYRINGE SQ ONE; -LIDOCAINE 1% MDV 20ML VIAL SQ PRN; +LISI-538 PO; -LISI20TA33 PO; -LR 1,000 ML IV ONE; +ULTR50TA8 PO; -ceFAZolin SOD 2 GM in IV 1 EA IV ONE
--- NOTE | 2020-01-04 09:57 | ECHO ---
DATE OF PROCEDURE: 01/03/2020 REFERRING PHYSICIAN: Dr. Fritz Meyers INDICATION: Cardiac murmur. HEIGHT: 170 cm. WEIGHT: 99 kg. DIMENSIONS: IVS: 1.2 LV: 4.1 LVPW: 1.1. LA: 2.6 Aorta: 3.2 IVC: 1.3 Mitral E wave velocity: 69 A wave: 97 E prime septal: 7.5 E prime lateral: 5.6 FINDINGS: The study is of acceptable technical quality considering patient's body habitus. Underlying rhythm is sinus rhythm. The left ventricle is of normal size and systolic function. Estimated left ventricular ejection fraction (LVEF) is 60-65%. Borderline left ventricular hypertrophy (LVH) is present. The right ventricle is also normal size and systolic function. Both atria appear normal. The aortic valve is mildly sclerotic, but is tricuspid and has preserved mobility. Mitral, tricuspid and pulmonic valves appear normal. No pericardial effusion is noted. The inferior vena cava is normal size and appropriately collapses with inspiration indicative of normal central venous pressure. The aortic root is normal. Aortic arch also appears normal, abdominal aorta was not well seen. Mitral inflow pattern and tissue Doppler imaging of mitral annulus revealed grade 1 diastolic dysfunction. Doppler interrogation of the cardiac valves revealed all four valves being competent without significant stenosis or insufficiency. CONCLUSIONS: 1. Study is of acceptable technical quality. The patient is in sinus rhythm. 2. Normal LV size, borderline LVH, preserved LV systolic function, and grade 1 diastolic dysfunction. 3. No significant valvular disease. Aortic sclerosis. 4. Normal central venous pressure. 5. Unable to estimate pulmonary artery pressure. COMMENT: Subacute bacterial endocarditis (SBE) prophylaxis is not recommended.
== END ==
LOC: M CARPUL 10:11
PROVIDERS: ATTEND Family Medicine
DX: R01.1 Cardiac murmur, unspecified (principal)

== ENCOUNTER → 2020-04-27 | Outpatient (CLI) | payer MEDICARE ==
--- NOTE | 2020-04-27 15:10 | REP ---
INDICATION: R92.1 CALCIFICATION RT BREAST W/BENIGN BX,EVAL STABILITY. Negative stereotactic biopsy right breast microcalcifications 10/05/2019. family history breast cancer in daughter age 44. COMPARISON: 09/06/2019 as well as other prior exams. TECHNIQUE: MLO and CC views of the right breast are performed with tomosynthesis. Magnification views are performed of the posterior upper outer quadrant of the right breast at the site of 2 negative stereotactic biopsies for microcalcifications in that region. FINDINGS: Mild scattered fibroglandular tissue appears unchanged in the its pattern. No new mass is seen. 2 biopsy clips are seen posteriorly in the upper outer quadrant of the right breast. Two groupings of tiny calcifications were sampled at these locations and are no longer visualized. Other groupings of tiny calcifications in the adjacent upper outer quadrant of the right breast have remained stable. [employer] breast density B. [facility] lifetime risk of breast cancer 7.8%. Patient states her last clinical breast exam was March 2020. IMPRESSION: BIRADS/ACR category 3 probably benign. Prior mammogram 09/06/2019 and 09/16/2019 showed several groupings of tiny microcalcifications in the upper-outer quadrant of the right breast. Two of these groupings were sampled and negative for cancer. Other groupings have remained stable. This mammogram was interpreted with the aid of an FDA-approved computer-aided detection system. The patient letter being requested is M3. RECOMMENDATION: Recommend follow-up bilateral mammogram August of 2020. <Electronically signed by Karson Menjivar > 04/27/20 [id number]
== END ==
LOC: M WHC 13:55
PROVIDERS: ATTEND Surgery
DX: R92.1 Mammographic calcification found on diagnostic imaging of breast (principal)
CPT/HCPCS: 77065; G0279

== ENCOUNTER → 2020-09-06 | Outpatient (CLI) | payer MEDICARE ==
[~2020-09-06] MED LIST changes: -LISI-538 PO; +LISI20TA33 PO
--- NOTE | 2020-09-06 12:17 | REP ---
INDICATION: R92.1 R BREAST CALC/R92.8/SURGERY ON L. BI-RADS 3 right breast mammography 27 April 2020 for microcalcifications. Status post 2 benign needle biopsies for microcalcifications right breast. Status post excisional biopsy left breast. COMPARISON: Mammography dated 27 April 2020 is reviewed along with September 06, 2019, August 06, 2019 TECHNIQUE: Bilateral CC and MLO) view(s) were taken. Routine views of the right breast are augmented by magnified focal spot-compression images in the CC, mL, and MLO projection to evaluate the microcalcifications on the right. 3D tomography is performed. FINDINGS: Scattered fibroglandular elements are seen bilaterally. There are groupings of microcalcifications in the upper-outer quadrant of the right breast with 2 adjacent a needle biopsy marker clips again noted. These are unchanged from the September 16, 2019 prior mammograms. No evidence of progression seen. There is post surgical scarring in the upper outer quadrant of the left breast. No suspicious abnormality on the left. 3-D tomosynthesis shows no additional finding. The Volpara volumetric breast density pattern is B. IMPRESSION: BI-RADS category 3 probably benign findings. Stable calcifications right breast upper outer quadrant which have been sampled. This patient's Tyrer-Cuzick lifetime breast cancer risk assessment score is 7.8%. This mammogram was interpreted with the aid of an FDA-approved computer-aided detection system. The patient states she had a clinical breast exam in April of 2020. The patient letter being requested is M 3. RECOMMENDATION: Repeat diagnostic mammography right breast 6 months and bilateral screening study in 1 year.. <Electronically signed by Santiago Shelley > 09/06/20 [id number]
== END ==
LOC: M WHC 10:53
PROVIDERS: ATTEND Surgery
DX: R92.1 Mammographic calcification found on diagnostic imaging of breast (principal)
CPT/HCPCS: 77066; G0279

== ENCOUNTER → 2021-05-04 | Outpatient (CLI) | payer MEDICARE ==
--- NOTE | 2021-05-04 14:37 | REP ---
INDICATION: R BREAST DIAG MAMMO/CALCIFICATIONS. COMPARISON: 09/06/2020, 04/27/2020, 09/16/2019, 09/06/2019. TECHNIQUE: Multiple views of the right breast are performed including tomosynthesis and magnification views. FINDINGS: Moderate fibroglandular tissue in the right breast is unchanged. The groupings of tiny calcifications previously visualized in the upper outer quadrant have remained stable since August of 2019. Two areas of calcifications were sampled since that time, with benign results. The previously noted biopsy clips are again noted. No new mass or clustered microcalcifications are seen. Volpara breast density is B. IMPRESSION: BIRADS/ACR category 3, probably benign mammogram right breast. There is continued stability of groupings of tiny calcifications in the upper outer quadrant discussed in detail above. No new findings. Tyrer-Cuzick lifetime risk of breast cancer 7.4%. Most recent clinical breast exam September 2020. This mammogram was interpreted with the aid of an FDA-approved computer-aided detection system. The patient letter being requested is M3. RECOMMENDATION: Recommend follow-up bilateral mammogram August of 2021. <Electronically signed by Karson Menjivar > 05/04/21 [id number]
== END ==
LOC: M WHC 13:31
PROVIDERS: ATTEND Surgery
DX: R92.1 Mammographic calcification found on diagnostic imaging of breast (principal)
CPT/HCPCS: 77065; G0279

== ENCOUNTER → 2021-12-05 | Outpatient (CLI) | payer MEDICARE ==
[~2021-12-05] MED LIST changes: -ACET1TAB16 PO; +ACET300T48 PO
== END ==
LOC: M WHC 12:34
PROVIDERS: ATTEND Surgery
DX: Z12.39 Encounter for other screening for malignant neoplasm of breast (principal); R92.1 Mammographic calcification found on diagnostic imaging of breast; N64.1 Fat necrosis of breast; R92.8 Other abnormal and inconclusive findings on diagnostic imaging of breast
CPT/HCPCS: 77066; G0279

== ENCOUNTER → 2023-04-01 | Outpatient (CLI) | payer MEDICARE | LOC: M WHC 11:40 | PROVIDERS: ATTEND Nurse Practitioner Adult Health | DX: Z12.31 Encounter for screening mammogram for malignant neoplasm of breast (principal) ==

== ENCOUNTER 2023-06-11 10:59 | Inpatient (IN) | payer MEDICARE ==
[~2023-06-11] VITALS: Ht 170.2 cm; Wt 89.0 kg
[2023-06-11] MEDS ORDERED: PANTOPRAZOLE 40MG VIAL IV ONE (12:30)
[2023-06-11] MEDS ORDERED: VITAMIN D PO (12:31)
[2023-06-11] MEDS ORDERED: OMEP40CA5 PO (12:31)
[2023-06-11] MEDS ORDERED: LABETALOL 100MG/20ML VIAL IV STA ×2 (12:33→13:33)
[2023-06-11 12:38] LABS: BASO % 0.2 % (0.0-1.0); EOS % 0.1 % (0.0-3.0); HEMATOCRIT 41.7 % (36.0-47.0); HEMOGLOBIN 14.2 g/dl (12.0-15.5); LYMPH # 1.3 10^3/uL (1.5-5.0); LYMPH % 9.8 % (24.0-44.0); MEAN CORPUSCULAR HEMOGLOBIN 27.6 pg (27.0-33.0); MEAN CORPUSCULAR HGB CONC 34.1 g/dl (32.0-36.5); MEAN CORPUSCULAR VOLUME 81.1 fl (80.0-96.0); MONO # 0.6 10^3/uL (0.0-0.8); MONO % 4.5 % (2.0-8.0); NEUTROPHILS % 84.9 % (36.0-66.0); PLATELET COUNT, AUTOMATED 275 10^3/uL (150-450); RED BLOOD COUNT 5.14 10^6/uL (4.00-5.40)
[2023-06-11 12:50] LABS: INR 1.05; PROTHROMBIN TIME 13.4 SECONDS (12.5-14.5)
[2023-06-11 13:03] LABS: ALBUMIN 3.6 G/DL (3.2-5.2); ALKALINE PHOSPHATASE 182 U/L (46-116); ALT/SGPT 302 U/L (7.0-40); AST/SGOT 164 U/L (<34); BILIRUBIN,DIRECT 0.5 MG/DL (<0.4); BILIRUBIN,TOTAL 1.2 MG/DL (0.3-1.2); BLOOD UREA NITROGEN 19 MG/DL (9-23); CALCIUM LEVEL 9.1 MG/DL (8.3-10.6); CARBON DIOXIDE LEVEL 25 MMOL/L (20-31); CHLORIDE LEVEL 98 MMOL/L (98-107); CK-MB VALUE MASS < 1.0 NG/ML (<3.6); CPK CREATINE PHOSPHOKINASE 114 U/L (34-145); CREATININE FOR GFR 0.92 MG/DL (0.55-1.30); GLOMERULAR FILTRATION RATE > 60.0 (>39); GLUCOSE, FASTING 280 MG/DL (74-106); MB/CK RELATIVE INDEX 0.87 (< OR =4); POTASSIUM SERUM 3.4 MMOL/L (3.5-5.1); SODIUM LEVEL 133 MMOL/L (136-145)
[2023-06-11 13:09] LABS: AMYLASE 624 U/L (30-118)
[2023-06-11 13:12] LABS: LIPASE 700.00001 U/L (12-53)
[2023-06-11 13:13] LABS: RSV AMPLIFICATION NEGATIVE (NEGATIVE)
[2023-06-11] MEDS ORDERED: NS 1,000 ML IV ONE (13:15)
[2023-06-11] MEDS ORDERED: METOPROLOL TART 25 MG TABLET PO ONE (13:35)
[2023-06-11] MEDS ORDERED: VITA100093 PO (13:46)
[2023-06-11] MEDS ORDERED: HOME MED LIST COMPLETE! XX SCH (13:55)
[2023-06-11] MEDS ORDERED: DEXTROSE 50% 50ML SYRINGE IV PRN (14:05)
[2023-06-11] MEDS ORDERED: LR 1,000 ML IV ONE (14:05)
[2023-06-11] MEDS ORDERED: MORPHINE 4 MG/ML 1ML VIAL IV PRN (14:05)
[2023-06-11] MEDS ORDERED: GLUCAGON INJ 1MG VIAL SC PRN (14:05)
[2023-06-11] MEDS ORDERED: MORPHINE 2 MG/ML 1ML VIAL IV PRN (14:05)
[2023-06-11] MEDS ORDERED: GLUCOSE 4GM CHEW TABLET PO PRN (14:05)
[2023-06-11] MEDS ORDERED: hydrALAZINE 20MG/ML 1ML VIAL IV ONE (16:25)
[2023-06-11 17:43] VITALS: BP 162/92; TEMP 97.7; O2SAT 96
[2023-06-11] MEDS: ENOXAPARIN 40MG/0.4ML SYRINGE (J1650 PER 10MG) SC SCH (17:56)
[2023-06-11] MEDS: INSULIN LISPRO (NovoLOG) PER UNIT SC SCH ×2 (17:57→23:29)
[2023-06-11] MEDS: KCL 10MEQ/100ML SWI (KRUN) 10 MEQ in IV 1 EA IV SCH ×2 (18:54→20:11)
[2023-06-11 19:35] VITALS: BP 150/76; TEMP 100.3; O2SAT 98
[2023-06-11] MEDS: LR 1,000 ML IV SCH ×2 (21:44→21:49)
[2023-06-11 23:15] VITALS: BP 178/77; TEMP 98.4; O2SAT 92
[2023-06-11] MEDS ORDERED: amLODIPine 5 MG TAB PO ONE (23:25)
[2023-06-12] VITALS (17 sets, daily range): BP systolic 159–205; BP diastolic 70–98; TEMP 97.7–98.6; O2SAT 96–98
[2023-06-12] MEDS: LR 1,000 ML IV SCH ×2 (04:54→14:00)
[2023-06-12] MEDS: LEVOTHYROXINE 25MCG TABLET (0.025MG) PO SCH (04:54)
[2023-06-12] MEDS: hydrALAZINE 20MG/ML 1ML VIAL IV PRN ×2 (04:57→17:20)
[2023-06-12] MEDS: INSULIN LISPRO (NovoLOG) PER UNIT SC SCH ×4 (04:58→20:02)
[2023-06-12 05:45] LABS: BASO % 0.2 % (0.0-1.0); EOS % 0.1 % (0.0-3.0); HEMATOCRIT 36.3 % (36.0-47.0); HEMOGLOBIN 12.3 g/dl (12.0-15.5); LYMPH # 1.4 10^3/uL (1.5-5.0); LYMPH % 10.7 % (24.0-44.0); MEAN CORPUSCULAR HEMOGLOBIN 27.6 pg (27.0-33.0); MEAN CORPUSCULAR HGB CONC 33.9 g/dl (32.0-36.5); MEAN CORPUSCULAR VOLUME 81.4 fl (80.0-96.0); MONO # 0.8 10^3/uL (0.0-0.8); MONO % 6.3 % (2.0-8.0); NEUTROPHILS # 10.8 10^3/uL (1.5-8.5); PLATELET COUNT, AUTOMATED 232 10^3/uL (150-450); RED BLOOD COUNT 4.46 10^6/uL (4.00-5.40); WHITE BLOOD COUNT 13.1 10^3/uL (4.0-10.0)
[2023-06-12 05:58] LABS: LIPASE 251 U/L (12-53)
[2023-06-12 06:03] LABS: ALBUMIN 2.8 G/DL (3.2-5.2); ALKALINE PHOSPHATASE 127 U/L (46-116); ALT/SGPT 175 U/L (7.0-40); AST/SGOT 49 U/L (<34); BLOOD UREA NITROGEN 17 MG/DL (9-23); CALCIUM LEVEL 8.8 MG/DL (8.3-10.6); CARBON DIOXIDE LEVEL 24 MMOL/L (20-31); CHLORIDE LEVEL 104 MMOL/L (98-107); CREATININE FOR GFR 0.77 MG/DL (0.55-1.30); GLOMERULAR FILTRATION RATE > 60.0 (>39); GLUCOSE, FASTING 165 MG/DL (74-106); POTASSIUM SERUM 3.3 MMOL/L (3.5-5.1); SODIUM LEVEL 138 MMOL/L (136-145); TOTAL PROTEIN 6.7 G/DL (5.7-8.2)
[2023-06-12] MEDS ORDERED: hydrALAZINE 20MG/ML 1ML VIAL IV ONE (06:40)
[2023-06-12] MEDS ORDERED: amLODIPine 5 MG TAB PO SCH (07:00)
[2023-06-12] MEDS: MAG SULF 1GM/100ML (MAG RUN) 1 GM in IV 1 EA IV SCH ×2 (07:47→08:55)
[2023-06-12] MEDS: ENOXAPARIN 40MG/0.4ML SYRINGE (J1650 PER 10MG) SC SCH (08:56)
[2023-06-12] MEDS: KCL 10MEQ/100ML SWI (KRUN) 10 MEQ in IV 1 EA IV SCH ×4 (10:35→14:00)
[2023-06-12] MEDS ORDERED: amLODIPine 5 MG TAB PO ONE ×2 (14:10→22:30)
[2023-06-12] MEDS ORDERED: CHLORTHALIDONE 25 MG TAB PO ONE (15:45)
[2023-06-12] MEDS: **hydrALAZINE** 50 MG TAB PO SCH (20:03)
[2023-06-12] MEDS ORDERED: **hydrALAZINE HCL** 25 MG TAB PO SCH ×2 (21:00→22:00)
[2023-06-12] MEDS ORDERED: LR 1,000 ML IV SCH (22:25)
[2023-06-12] MEDS ORDERED: ONDANSETRON 4MG 2ML VIAL IV PRN (22:30)
[2023-06-12] MEDS ORDERED: cloNIDine 0.1MG TABLET PO SCH (22:50)
[2023-06-13] VITALS (7 sets, daily range): BP systolic 122–172; BP diastolic 72–84; TEMP 96.2–97.8; O2SAT 94–98
[2023-06-13] MEDS: **hydrALAZINE** 50 MG TAB PO SCH (04:28)
[2023-06-13 05:08] LABS: HEMATOCRIT 38.9 % (36.0-47.0); MEAN CORPUSCULAR HEMOGLOBIN 27.3 pg (27.0-33.0); MEAN CORPUSCULAR HGB CONC 33.4 g/dl (32.0-36.5); MEAN CORPUSCULAR VOLUME 81.7 fl (80.0-96.0); PLATELET COUNT, AUTOMATED 264 10^3/uL (150-450); RED BLOOD COUNT 4.76 10^6/uL (4.00-5.40); WHITE BLOOD COUNT 14.1 10^3/uL (4.0-10.0)
[2023-06-13 05:20] LABS: LIPASE 111 U/L (12-53)
[2023-06-13 05:22] LABS: AMYLASE 134 U/L (30-118)
[2023-06-13 05:25] LABS: BLOOD UREA NITROGEN 19 MG/DL (9-23); CALCIUM LEVEL 9.2 MG/DL (8.3-10.6); CARBON DIOXIDE LEVEL 24 MMOL/L (20-31); CHLORIDE LEVEL 100 MMOL/L (98-107); CREATININE FOR GFR 0.74 MG/DL (0.55-1.30); GLOMERULAR FILTRATION RATE > 60.0 (>39); GLUCOSE, FASTING 157 MG/DL (74-106); MAGNESIUM LEVEL 1.5 MG/DL (1.8-2.4); POTASSIUM SERUM 3.6 MMOL/L (3.5-5.1); SODIUM LEVEL 135 MMOL/L (136-145)
[2023-06-13] MEDS: LEVOTHYROXINE 25MCG TABLET (0.025MG) PO SCH (06:11)
[2023-06-13] MEDS: CHLORTHALIDONE 25 MG TAB PO SCH (07:56)
[2023-06-13] MEDS: lisinopriL 40MG TAB PO SCH (07:57)
[2023-06-13] MEDS: INSULIN LISPRO (NovoLOG) PER UNIT SC SCH ×4 (07:57→21:00)
[2023-06-13] MEDS: ENOXAPARIN 40MG/0.4ML SYRINGE (J1650 PER 10MG) SC SCH (07:58)
[2023-06-13] MEDS ORDERED: MAG SULF 1GM/100ML (MAG RUN) 1 GM in IV 1 EA IV ONE (08:00)
[2023-06-13] MEDS ORDERED: amLODIPine 5 MG TAB PO SCH (09:00)
[2023-06-13] MEDS: **hydrALAZINE HCL** 25 MG TAB PO SCH ×2 (12:51→21:20)
[2023-06-14] VITALS (7 sets, daily range): BP systolic 116–171; BP diastolic 65–79; TEMP 97–97.9; O2SAT 94–98
[2023-06-14] MEDS: **hydrALAZINE HCL** 25 MG TAB PO SCH ×4 (05:00→20:50)
[2023-06-14] MEDS: LEVOTHYROXINE 25MCG TABLET (0.025MG) PO SCH (05:11)
[2023-06-14 06:57] LABS: ALBUMIN 2.6 G/DL (3.2-5.2); BILIRUBIN,TOTAL 0.9 MG/DL (0.3-1.2); CALCIUM LEVEL 9.7 MG/DL (8.3-10.6); CREATININE FOR GFR 1.09 MG/DL (0.55-1.30); GLOMERULAR FILTRATION RATE 52.5 (>39); MAGNESIUM LEVEL 1.9 MG/DL (1.8-2.4); POTASSIUM SERUM 3.6 MMOL/L (3.5-5.1); TOTAL PROTEIN 6.7 G/DL (5.7-8.2)
[2023-06-14] MEDS: lisinopriL 40MG TAB PO SCH (08:17)
[2023-06-14] MEDS: INSULIN LISPRO (NovoLOG) PER UNIT SC SCH ×4 (08:17→20:39)
[2023-06-14] MEDS: ENOXAPARIN 40MG/0.4ML SYRINGE (J1650 PER 10MG) SC SCH (08:18)
[2023-06-14] MEDS: CHLORTHALIDONE 25 MG TAB PO SCH ×2 (08:58→08:59)
[2023-06-14] MEDS ORDERED: ARTIFICIAL TEARS DROPS 15ML BTL (VISINE DRY RELIEF) OU PRN (09:00)
[2023-06-14] MEDS ORDERED: ASPIRIN 325 MG TAB PO ONE (14:30)
[2023-06-15] VITALS (9 sets, daily range): BP systolic 109–152; BP diastolic 54–78; TEMP 96.6–97.7; O2SAT 91–96
[2023-06-15] MEDS: **hydrALAZINE HCL** 25 MG TAB PO SCH ×3 (05:12→20:02)
[2023-06-15] MEDS: LEVOTHYROXINE 25MCG TABLET (0.025MG) PO SCH (05:12)
[2023-06-15 06:27] LABS: BASO % 0.3 % (0.0-1.0); EOS # 0.4 10^3/uL (0.0-0.5); EOS % 3.8 % (0.0-3.0); HEMATOCRIT 37.7 % (36.0-47.0); HEMOGLOBIN 12.6 g/dl (12.0-15.5); LYMPH # 1.7 10^3/uL (1.5-5.0); LYMPH % 18.2 % (24.0-44.0); MEAN CORPUSCULAR HEMOGLOBIN 27.2 pg (27.0-33.0); MEAN CORPUSCULAR HGB CONC 33.4 g/dl (32.0-36.5); MEAN CORPUSCULAR VOLUME 81.3 fl (80.0-96.0); MONO # 0.7 10^3/uL (0.0-0.8); MONO % 7.4 % (2.0-8.0); NEUTROPHILS # 6.4 10^3/uL (1.5-8.5); NEUTROPHILS % 69.8 % (36.0-66.0); PLATELET COUNT, AUTOMATED 306 10^3/uL (150-450); RED BLOOD COUNT 4.64 10^6/uL (4.00-5.40); WHITE BLOOD COUNT 9.2 10^3/uL (4.0-10.0)
[2023-06-15 06:45] LABS: ALBUMIN 2.6 G/DL (3.2-5.2); BILIRUBIN,TOTAL 0.9 MG/DL (0.3-1.2); CALCIUM LEVEL 9.6 MG/DL (8.3-10.6); CREATININE FOR GFR 1.02 MG/DL (0.55-1.30); GLOMERULAR FILTRATION RATE 56.7 (>39); MAGNESIUM LEVEL 1.8 MG/DL (1.8-2.4); POTASSIUM SERUM 3.4 MMOL/L (3.5-5.1); TOTAL PROTEIN 6.5 G/DL (5.7-8.2)
[2023-06-15] MEDS: INSULIN LISPRO (NovoLOG) PER UNIT SC SCH ×4 (08:30→20:12)
[2023-06-15] MEDS: ENOXAPARIN 40MG/0.4ML SYRINGE (J1650 PER 10MG) SC SCH (08:30)
[2023-06-15] MEDS: CHLORTHALIDONE 25 MG TAB PO SCH (08:34)
[2023-06-15] MEDS: lisinopriL 40MG TAB PO SCH (08:34)
[2023-06-15] MEDS ORDERED: propofoL 200 MG/20 ML VIAL As Ordered ONE (12:58)
[2023-06-15] MEDS ORDERED: ROCURONIUM BROMIDE 50MG/5ML VIAL As Ordered ONE (12:58)
[2023-06-15] MEDS ORDERED: LIDOCAINE 2% 100MG/5ML SDV (FOR ANES.) As Ordered ONE (12:59)
[2023-06-15] MEDS ORDERED: SUGAMMADEX SODIUM 500 MG/5 ML VIAL (BRIDION) As Ordered ONE (12:59)
[2023-06-15] MEDS ORDERED: ONDANSETRON 4MG 2ML VIAL As Ordered ONE (13:00)
[2023-06-15] MEDS ORDERED: KETOROLAC 60MG 2ML VIAL As Ordered ONE (14:21)
[2023-06-15] MEDS ORDERED: ACETAMINOPHEN 1000MG 100ML IV BAG As Ordered ONE (14:21)
[2023-06-15] MEDS ORDERED: fentaNYL 100 MCG/2 ML INJECTION As Ordered ONE (14:53)
[2023-06-15] MEDS ORDERED: MIDAZOLAM INJ 2MG/2ML VIAL As Ordered ONE (14:53)
[2023-06-15] MEDS ORDERED: INDOCYANINE GREEN 25MG VIAL (IC-GREEN) As Ordered ONE (15:27)
[2023-06-15] MEDS ORDERED: ceFAZolin 1GM VIAL As Ordered ONE (15:30)
[2023-06-15] MEDS ORDERED: fentaNYL 100 MCG/2 ML INJECTION IV PRN (16:40)
[2023-06-15] MEDS ORDERED: ONDANSETRON 4MG 2ML VIAL IV PRN (16:40)
[2023-06-15] MEDS ORDERED: oxyCODONE 5MG TAB PO PRN (16:40)
[2023-06-15] MEDS ORDERED: HYDROMORPHONE HCL 0.5 MG/ 0.5 ML SYRINGE IV PRN (16:40)
[2023-06-15] MEDS ORDERED: LR 1,000 ML IV SCH (16:40)
[2023-06-15] MEDS ORDERED: INSULIN LISPRO (NovoLOG) PER UNIT SC PRN (16:40)
[2023-06-15] MEDS ORDERED: POTASSIUM CHLORIDE 10MEQ SR TABLET PO ONE (20:00)
[2023-06-16 02:00] VITALS: BP 158/78; TEMP 96.6; O2SAT 93
[2023-06-16 05:13] VITALS: BP 157/78; TEMP 97; O2SAT 94
[2023-06-16] MEDS: **hydrALAZINE HCL** 25 MG TAB PO SCH (05:21)
[2023-06-16] MEDS: LEVOTHYROXINE 25MCG TABLET (0.025MG) PO SCH (05:21)
[2023-06-16 07:51] LABS: BASO % 0.1 % (0.0-1.0); EOS # 0.1 10^3/uL (0.0-0.5); EOS % 0.9 % (0.0-3.0); HEMATOCRIT 40.7 % (36.0-47.0); HEMOGLOBIN 13.3 g/dl (12.0-15.5); LYMPH # 2.1 10^3/uL (1.5-5.0); LYMPH % 18.7 % (24.0-44.0); MEAN CORPUSCULAR HEMOGLOBIN 27.2 pg (27.0-33.0); MEAN CORPUSCULAR HGB CONC 32.7 g/dl (32.0-36.5); MEAN CORPUSCULAR VOLUME 83.2 fl (80.0-96.0); MONO # 0.8 10^3/uL (0.0-0.8); MONO % 7.3 % (2.0-8.0); NEUTROPHILS # 8.1 10^3/uL (1.5-8.5); NEUTROPHILS % 72.5 % (36.0-66.0); PLATELET COUNT, AUTOMATED 396 10^3/uL (150-450); RED BLOOD COUNT 4.89 10^6/uL (4.00-5.40); WHITE BLOOD COUNT 11.2 10^3/uL (4.0-10.0)
[2023-06-16 08:20] LABS: CALCIUM LEVEL 9.7 MG/DL (8.3-10.6); CREATININE FOR GFR 1.12 MG/DL (0.55-1.30); GLOMERULAR FILTRATION RATE 50.9 (>39); MAGNESIUM LEVEL 1.9 MG/DL (1.8-2.4)
[2023-06-16] MEDS: ENOXAPARIN 40MG/0.4ML SYRINGE (J1650 PER 10MG) SC SCH (09:00)
[2023-06-16] MEDS: CHLORTHALIDONE 25 MG TAB PO SCH (09:20)
[2023-06-16] MEDS: INSULIN LISPRO (NovoLOG) PER UNIT SC SCH (09:20)
[2023-06-16] MEDS: lisinopriL 40MG TAB PO SCH (09:20)
[2023-06-16] MEDS ORDERED: HYDR25TA PO (09:32)
[2023-06-16] MEDS ORDERED: LISI40TA4 PO (09:32)
[2023-06-16] MEDS ORDERED: CHLO25TA PO (09:32)
[2023-06-16] MEDS ORDERED: AMLO1TAB25 PO (09:32)
[2023-06-16] MEDS ORDERED: ACET-683 PO (09:34)
[2023-06-16 11:00] VITALS: BP 140/77
== END 2023-06-16 11:04 | disposition home or self-care (01) | DRG 418 ==
LOC: M ED 10:59 → M ED INP 15:47 → ENRESERV 15:59 → M PCU 17:33 → M MSPAV 06-13 23:06
PROVIDERS: ADMIT Internal Medicine; ATTEND Family Medicine
PROC: B246ZZZ Ultrasonography of Right and Left Heart (ICD-10-PCS; 2023-06-14)
PROC: 8E0W4CZ Robotic Assisted Procedure of Trunk Region, Percutaneous Endoscopic Approach (ICD-10-PCS; 2023-06-15)
PROC: 0FT44ZZ Resection of Gallbladder, Percutaneous Endoscopic Approach (ICD-10-PCS; principal; 2023-06-15 08:00)
DX: K85.10 Biliary acute pancreatitis without necrosis or infection (principal); I24.89 Other forms of acute ischemic heart disease; E11.22 Type 2 diabetes mellitus with diabetic chronic kidney disease; I12.9 Hypertensive chronic kidney disease with stage 1 through stage 4 chronic kidney disease, or unspecified chronic kidney disease; N18.30 Chronic kidney disease, stage 3 unspecified; E78.5 Hyperlipidemia, unspecified; E89.0 Postprocedural hypothyroidism; D64.9 Anemia, unspecified; K76.0 Fatty (change of) liver, not elsewhere classified; E87.6 Hypokalemia; Z79.890 Hormone replacement therapy; Z79.899 Other long term (current) drug therapy

== ENCOUNTER 2023-11-22 12:03 | Emergency (ER) | payer MEDICARE ==
[~2023-11-22] VITALS: Ht 170.2 cm; Wt 97.3 kg
[~2023-11-22 12:03] MED LIST changes: +ACET-683 PO; +AMLO1TAB25 PO; +CHLO25TA PO; -GLIM1TAB4 PO; +GLIM1TAB84 PO; +HYDR25TA88 PO; +LISI40TA4 PO; +OMEP40CA5 PO; +VITA100093 PO; +VITAMIN D PO
[2023-11-22 12:37] LABS: BASO % 0.4 % (0.0-1.0); EOS # 0.1 10^3/uL (0.0-0.5); EOS % 1.5 % (0.0-3.0); HEMATOCRIT 37.1 % (36.0-47.0); HEMOGLOBIN 12.5 g/dl (12.0-15.5); LYMPH # 2.2 10^3/uL (1.5-5.0); LYMPH % 29.9 % (24.0-44.0); MEAN CORPUSCULAR HEMOGLOBIN 27.5 pg (27.0-33.0); MEAN CORPUSCULAR HGB CONC 33.7 g/dl (32.0-36.5); MEAN CORPUSCULAR VOLUME 81.7 fl (80.0-96.0); MONO # 0.4 10^3/uL (0.0-0.8); MONO % 4.8 % (2.0-8.0); NEUTROPHILS # 4.6 10^3/uL (1.5-8.5); NEUTROPHILS % 63.1 % (36.0-66.0); PLATELET COUNT, AUTOMATED 210 10^3/uL (150-450); RED BLOOD COUNT 4.54 10^6/uL (4.00-5.40); WHITE BLOOD COUNT 7.3 10^3/uL (4.0-10.0)
[2023-11-22] MEDS: NS 1,000 ML IV ONE (12:40)
[2023-11-22 13:02] LABS: HEMOGLOBIN A1c 7.6 % (4.0-6.0)
[2023-11-22 13:08] LABS: ALBUMIN 3.5 G/DL (3.2-5.2); BILIRUBIN,DIRECT 0.2 MG/DL (<0.4); BILIRUBIN,TOTAL 0.8 MG/DL (0.3-1.2); CALCIUM LEVEL 8.8 MG/DL (8.3-10.6); CREATININE FOR GFR 1.14 MG/DL (0.55-1.30); GLOMERULAR FILTRATION RATE 49.9 (>39); POTASSIUM SERUM 3.2 MMOL/L (3.5-5.1); TOTAL PROTEIN 7.5 G/DL (5.7-8.2)
[2023-11-22 13:11] LABS: THYROID STIMULATING HORMONE 5.253 uIU/ML (0.55-4.78)
[2023-11-22] MEDS ORDERED: AMLO1TAB25 PO (13:34)
[2023-11-22] MEDS ORDERED: ACET-683 PO (13:34)
[2023-11-22] MEDS ORDERED: MULTTAB61 PO (13:34)
[2023-11-22] MEDS ORDERED: HOME MED LIST COMPLETE! XX SCH (13:35)
[2023-11-22] MEDS: MIDAZOLAM INJ 2MG/2ML VIAL IV STA (13:52)
[2023-11-22 15:48] VITALS: O2SAT 99
[2023-11-22] MEDS: POTASSIUM CHLORIDE 10MEQ SR TABLET PO ONE (16:27)
[2023-11-22 16:35] VITALS: BP 156/88; TEMP 97.6
== END 2023-11-22 16:42 | disposition home or self-care (01) ==
LOC: M ED 12:03
DX: E87.6 Hypokalemia (principal); R26.9 Unspecified abnormalities of gait and mobility; E11.65 Type 2 diabetes mellitus with hyperglycemia; I10 Essential (primary) hypertension; E78.5 Hyperlipidemia, unspecified; N18.9 Chronic kidney disease, unspecified; Z91.048 Other nonmedicinal substance allergy status

== ENCOUNTER 2023-11-23 16:51 | Inpatient (IN) | payer MEDICARE ==
[~2023-11-23] VITALS: Ht 170.2 cm; Wt 93.7 kg
[~2023-11-23 16:51] MED LIST changes: +MULTTAB61 PO; +ONDA-282 PO; -ONDA4TAB6 PO
[2023-11-23] MEDS: INSULIN LISPRO (NovoLOG) PER UNIT SC SCH ×2 (18:00→20:34)
[2023-11-23 19:00] VITALS: BP 183/88; TEMP 97.7; O2SAT 99
[2023-11-23] MEDS ORDERED: NS 1,000 ML IV SCH (19:30)
[2023-11-23] MEDS ORDERED: DEXTROSE 50% 50ML SYRINGE IV PRN ×2 (19:30→20:20)
[2023-11-23] MEDS ORDERED: GLUCAGON INJ 1MG VIAL SC PRN ×2 (19:30→20:20)
[2023-11-23] MEDS ORDERED: GLUCOSE 4 GM CHEW PO PRN ×2 (19:30→20:20)
[2023-11-23] MEDS ORDERED: HOME MED LIST COMPLETE! XX SCH (19:45)
[2023-11-23] MEDS ORDERED: LORazepam 2 MG/ML 1ML VIAL IV PRN (19:45)
[2023-11-23 19:53] LABS: VENOUS BASE EXCESS -4.2 (-2.0-2.0); VENOUS PARTIAL PRESSURE CO2 38.9 mmHg (38.0-50.0); VENOUS PARTIAL PRESSURE O2 43.4 mmHg (30.0-50.0); VENOUS STANDARD HCO3 20.6 MMOL/L; VENOUS TOTAL CO2 22.2 MMOL/L (24.0-28.0)
[2023-11-23 19:58] LABS: HEMATOCRIT 35.6 % (36.0-47.0); HEMOGLOBIN 12.1 g/dl (12.0-15.5); MEAN CORPUSCULAR HEMOGLOBIN 27.4 pg (27.0-33.0); MEAN CORPUSCULAR VOLUME 80.5 fl (80.0-96.0); PLATELET COUNT, AUTOMATED 197 10^3/uL (150-450); RED BLOOD COUNT 4.42 10^6/uL (4.00-5.40); WHITE BLOOD COUNT 9.3 10^3/uL (4.0-10.0)
[2023-11-23 20:03] LABS: ERYTHROCYTE SEDIMENTATION RATE 28 mm/hr (0-30)
[2023-11-23 20:22] LABS: C REACTIVE PROTEIN QUANTITATIV < 0.40 MG/DL (<1.0)
[2023-11-23] MEDS ORDERED: ACETAMINOPHEN TAB 650MG DOSE (2X325MG) PO PRN (20:25)
[2023-11-23 20:27] LABS: VITAMIN B12 LEVEL 385 PG/ML (211-911)
[2023-11-23] MEDS: levETIRAcetam INJection 500 MG in D5W MINI-BAG PLUS 100 ML IV SCH (20:41)
[2023-11-23] MEDS: PRAVASTATIN 20 MG TAB PO SCH (20:42)
[2023-11-23] MEDS: ENOXAPARIN 40MG/0.4ML SYRINGE (J1650 PER 10MG) SC SCH (20:42)
[2023-11-23 20:43] LABS: CPK CREATINE PHOSPHOKINASE 450 U/L (34-145)
[2023-11-23 20:48] LABS: ALBUMIN 3.2 G/DL (3.2-5.2); ALKALINE PHOSPHATASE 60 U/L (46-116); ALT/SGPT 22 U/L (7.0-40); AST/SGOT 19 U/L (<34); BILIRUBIN,TOTAL 0.7 MG/DL (0.3-1.2); BLOOD UREA NITROGEN 11 MG/DL (9-23); CALCIUM LEVEL 8.1 MG/DL (8.3-10.6); CARBON DIOXIDE LEVEL 24 MMOL/L (20-31); CHLORIDE LEVEL 104 MMOL/L (98-107); CREATININE FOR GFR 1.05 MG/DL (0.55-1.30); GLOMERULAR FILTRATION RATE 54.8 (>39); GLUCOSE, FASTING 153 MG/DL (74-106); POTASSIUM SERUM 3.2 MMOL/L (3.5-5.1); SODIUM LEVEL 137 MMOL/L (136-145)
[2023-11-23] MEDS: POTASSIUM CHLORIDE 10MEQ SR TABLET PO ONE (21:11)
[2023-11-23] MEDS: MAGNESIUM OXIDE 400MG TAB (MAG-OX) PO SCH (21:11)
[2023-11-23] MEDS: MAG SULF 1GM/100ML (MAG RUN) 1 GM in IV 1 EA IV SCH (21:11)
[2023-11-23 23:17] VITALS: BP 170/74; TEMP 97.2; O2SAT 97
[2023-11-23] MEDS: KCL 20MEQ in NS 1000ML 1,000 ML IV SCH (23:24)
[2023-11-24] MEDS: METOPROLOL TART 12.5 MG PER 1/2 TAB PO ONE (01:08)
[2023-11-24] MEDS: cefTRIAXone SOD 1 GM in D5W MINI-BAG PLUS 50 ML IV SCH (01:08)
[2023-11-24 03:08] VITALS: BP 131/66; TEMP 97.4; O2SAT 96
[2023-11-24] MEDS: LEVOTHYROXINE 25MCG TABLET (0.025MG) PO SCH (05:54)
[2023-11-24 05:59] LABS: INR 1.17; PROTHROMBIN TIME 14.5 SECONDS (12.5-14.5)
[2023-11-24 06:15] LABS: CALCIUM LEVEL 8.1 MG/DL (8.3-10.6); CREATININE FOR GFR 1.07 MG/DL (0.55-1.30); GLOMERULAR FILTRATION RATE 53.7 (>39); MAGNESIUM LEVEL 1.8 MG/DL (1.8-2.4); POTASSIUM SERUM 3.3 MMOL/L (3.5-5.1)
[2023-11-24] MEDS: INSULIN LISPRO (NovoLOG) PER UNIT SC SCH (07:30)
[2023-11-24 07:42] LABS: PROLACTIN 4.79 NG/ML
[2023-11-24 08:52] VITALS: BP 164/75; TEMP 96.2; O2SAT 99
[2023-11-24] MEDS ORDERED: ENOXAPARIN 40MG/0.4ML SYRINGE (J1650 PER 10MG) SC SCH (09:00)
[2023-11-24] MEDS: METOPROLOL TART 12.5 MG PER 1/2 TAB PO SCH (10:36)
[2023-11-24] MEDS: VITAMIN D 1,000 INTERNATIONAL UNITS TABLET PO SCH (10:36)
[2023-11-24] MEDS: levETIRAcetam 250MG TABLET (KEPPRA) PO SCH (10:37)
[2023-11-24] MEDS: PANTOPRAZOLE 40MG TAB (PROTONIX) PO SCH (10:37)
[2023-11-24 12:00] VITALS: BP 142/70; TEMP 97.6; O2SAT 98
[2023-11-24 16:00] VITALS: BP 152/70; TEMP 97; O2SAT 98
[2023-11-24 20:00] VITALS: BP 138/72; TEMP 96.4; O2SAT 99
[2023-11-24] MEDS: LEVEMIR (INSULIN DETEMIR) 1 UNITS/0.01ML SC SCH (20:12)
[2023-11-25] VITALS: BP 146/75; TEMP 96.6; O2SAT 97
[2023-11-25 04:00] VITALS: BP 160/77; TEMP 96.6; O2SAT 99
[2023-11-25 08:10] VITALS: BP 151/80; TEMP 96.5; O2SAT 99
[2023-11-25] MEDS ORDERED: FOSFOMYCIN TROMETHAMINE 3 GM POWDER PACKET (MONUROL) PO ONE (08:30)
[2023-11-25] MEDS ORDERED: LISI10TA22 PO (08:30)
[2023-11-25] MEDS ORDERED: KEPP250T5 PO (08:30)
[2023-11-25] MEDS ORDERED: METO1TAB87 PO (08:44)
[2023-11-25] MEDS: POTASSIUM CHLORIDE 10MEQ SR TABLET PO ONE (09:10)
[2023-11-25 09:11] VITALS: BP 151/80
[2023-11-25] MEDS: METOPROLOL TART 25 MG TABLET PO ONE (09:11)
[2023-11-25 09:40] LABS: CPK CREATINE PHOSPHOKINASE 359 U/L (34-145)
[2023-11-25 09:42] LABS: BLOOD UREA NITROGEN 10 MG/DL (9-23); CALCIUM LEVEL 8.9 MG/DL (8.3-10.6); CARBON DIOXIDE LEVEL 25 MMOL/L (20-31); CHLORIDE LEVEL 105 MMOL/L (98-107); CHOLESTEROL LEVEL 153 MG/DL (<200); CHOLESTEROL RISK RATIO 4.82 (<5); CK-MB VALUE MASS 2.8 NG/ML (<3.6); CREATININE FOR GFR 0.92 MG/DL (0.55-1.30); GLOMERULAR FILTRATION RATE > 60.0 (>39); GLUCOSE, FASTING 122 MG/DL (74-106); HDL CHOLESTEROL 31.7 MG/DL (>40); LDL CHOLESTEROL 74.3 MG/DL (<100); MB/CK RELATIVE INDEX 0.77 (< OR =4); NON-HDL-C 121.3 MG/DL; POTASSIUM SERUM 3.5 MMOL/L (3.5-5.1); SODIUM LEVEL 137 MMOL/L (136-145); TRIGLYCERIDES LEVEL 235 MG/DL (<150)
== END 2023-11-25 11:28 | disposition home health service (06) | DRG 101 ==
LOC: M PCU 18:46
PROVIDERS: ADMIT Internal Medicine; ATTEND General Practice
DX: G40.409 Other generalized epilepsy and epileptic syndromes, not intractable, without status epilepticus (principal); E87.20 Acidosis, unspecified; N39.0 Urinary tract infection, site not specified; N18.9 Chronic kidney disease, unspecified; E11.22 Type 2 diabetes mellitus with diabetic chronic kidney disease; I12.9 Hypertensive chronic kidney disease with stage 1 through stage 4 chronic kidney disease, or unspecified chronic kidney disease; K21.9 Gastro-esophageal reflux disease without esophagitis; R53.1 Weakness; E87.6 Hypokalemia; I25.10 Atherosclerotic heart disease of native coronary artery without angina pectoris; G83.84 Todd's paralysis (postepileptic); E66.9 Obesity, unspecified; E83.42 Hypomagnesemia; Z68.32 Body mass index [BMI] 32.0-32.9, adult; Z87.442 Personal history of urinary calculi; Z79.890 Hormone replacement therapy; Z79.84 Long term (current) use of oral hypoglycemic drugs; Z79.899 Other long term (current) drug therapy

== ENCOUNTER → 2023-11-27 | Outpatient (REF) | payer MEDICARE ==
[~2023-11-27] MED LIST changes: +KEPP250T5 PO; +LISI10TA22 PO; +METO1TAB87 PO
== END ==
LOC: M SFHCPLAZ 20:00
PROVIDERS: ATTEND Student in an Organized Health Care Education/Training Program
DX: R56.9 Unspecified convulsions (principal)

== ENCOUNTER → 2024-04-06 | Outpatient (CLI) | payer MEDICARE | LOC: M WHC 13:32 | PROVIDERS: ATTEND Nurse Practitioner Adult Health | DX: Z12.31 Encounter for screening mammogram for malignant neoplasm of breast (principal) ==

== ENCOUNTER → 2024-05-06 | Outpatient (CLI) | payer MEDICARE ==
[2024-05-06 19:32] LABS: FREE T4 1.14 NG/DL (0.89-1.76); THYROID STIMULATING HORMONE 16.186 uIU/ML (0.55-4.78)
== END ==
LOC: M PLALAB 14:28
PROVIDERS: ATTEND Nurse Practitioner Adult Health
DX: E11.65 Type 2 diabetes mellitus with hyperglycemia (principal)

== ENCOUNTER → 2024-06-30 | Outpatient (REF) | payer MEDICARE ==
[~2024-06-30] MED LIST changes: +METH-1387 PO; -METH10TA PO
== END ==
LOC: M SFHCDERM 17:40
PROVIDERS: ATTEND Physician Assistant
DX: D22.61 Melanocytic nevi of right upper limb, including shoulder (principal)

== ENCOUNTER → 2024-10-25 | Outpatient (CLI) | payer MEDICARE ==
[~2024-10-25] MED LIST changes: -FLOM0.4C39 PO; +TAMS-18 PO
[2024-10-25 16:03] LABS: ALBUMIN 3.3 G/DL (3.2-5.2); BILIRUBIN,TOTAL 0.5 MG/DL (0.3-1.2); CREATININE FOR GFR 1.16 MG/DL (0.55-1.30); FREE T4 1.41 NG/DL (0.89-1.76); GLOMERULAR FILTRATION RATE 49.8 (>39); POTASSIUM SERUM 3.6 MMOL/L (3.5-5.1); THYROID STIMULATING HORMONE 1.375 uIU/ML (0.55-4.78); TOTAL PROTEIN 7.5 G/DL (5.7-8.2)
[2024-11-02 01:28] LABS: ALPHA 2-MACROGLOBULINS,QN 290 mg/dL (106-279); ALT (SGPT) P5P 13 U/L (6-29); APOLIPOPROTEIN A-1 133 mg/dL (101-198); BILIRUBIN, TOTAL 0.5 mg/dL (0.2-1.2); FIBROSIS STAGE MODERATE FIBROSIS (F0); GGT 28 U/L (3-65); HAPTOGLOBIN 118 mg/dL (43-212); NECROINFLAM ACT GRADE NO ACTIVITY (A0); NECROINFLAM ACT SCORE 0.05
== END ==
LOC: M PLALAB 14:21
PROVIDERS: ATTEND Nurse Practitioner Adult Health
DX: E11.65 Type 2 diabetes mellitus with hyperglycemia (principal); K76.0 Fatty (change of) liver, not elsewhere classified

== ENCOUNTER → 2025-04-27 | Outpatient (CLI) | payer MEDICARE ==
[~2025-04-27] MED LIST changes: +LISI40TA10 PO; -LISI40TA4 PO; -PRAV40TA2 PO; +PRAV40TA85 PO
== END ==
LOC: M WHC 14:28
PROVIDERS: ATTEND Nurse Practitioner Adult Health
DX: Z12.31 Encounter for screening mammogram for malignant neoplasm of breast (principal); R92.323 Mammographic fibroglandular density, bilateral breasts; N60.11 Diffuse cystic mastopathy of right breast; N60.12 Diffuse cystic mastopathy of left breast